=== PATIENT | male | born 2000 | race Caucasian/White ===

== ENCOUNTER 2022-11-07 05:11 | Inpatient (IN) | payer MEDICAID, SELFPAY ==
[2022-11-07] VITALS (13 sets, daily range): BP systolic 112–142; BP diastolic 56–98; PULSE 86–108; RESP 12–24; TEMP 36.7–37.1; O2SAT 94–100; BMI 22.4
--- NOTE | ~2022-11-07 | CT_ITS ---
EXAMINATION: CT ABDOMEN AND PELVIS WITHOUT CONTRAST CLINICAL INFORMATION: Epigastric pain. Emesis. COMPARISON: None TECHNIQUE: Multidetector volumetric imaging was performed from the superior aspect of the liver through the pubic symphysis. Sagittal and coronal reformatted images were obtained on the technologist's workstation. This CT examination was performed using dose optimization techniques as appropriate, variously including the following: *Automated exposure control *Adjustment of mA and/or kV according to patient size (this includes techniques or standardized protocols for targeted exams where dose is matched to indication/reason for exam; i.e. extremities or head) *Use of iterative reconstruction technique DLP: 315 mGy-cm FINDINGS: LUNG BASES: The visualized lung bases are unremarkable. LIVER, GALLBLADDER, AND BILIARY TREE: The liver is normal in size, shape, and attenuation. No focal hepatic lesion or biliary ductal dilatation is present. The gallbladder is unremarkable with no evidence of radiopaque gallstones, gallbladder wall thickening, or obvious pericholecystic inflammatory changes. PANCREAS: Unremarkable. SPLEEN: Unremarkable. ADRENAL GLANDS: Unremarkable. KIDNEYS AND URETERS: The kidneys are normal in size, shape, and attenuation. No hydronephrosis, hydroureter, or calculi seen. No perinephric stranding. BLADDER: Unremarkable. GASTROINTESTINAL TRACT: No acute abnormality. There is no bowel wall thickening /edema. There is no bowel obstruction. There is a moderate to large volume of stool in the colon. The appendix is nonvisualized . There are no inflammatory changes of the mesentery. The small bowel loops are unremarkable. The stomach is normal. There is no hiatal hernia. ABDOMINAL WALL: No significant hernia is appreciated. LYMPH NODES: Normal. VASCULAR: Unremarkable. PELVIC VISCERA: Unremarkable. OSSEOUS STRUCTURES: Unremarkable. CT/CT abdomen pelvis wo IV con IMPRESSION: No significant abnormality. Fleischner guidelines were followed.
--- NOTE | 2022-11-07 05:23 | ECG_ITS ---
Test Reason : abd pain Blood Pressure : / mmHG Vent. Rate : 112 BPM Atrial Rate : 112 BPM P-R Int : 122 ms QRS Dur : 078 ms QT Int : 330 ms P-R-T Axes : 077 086 052 degrees QTc Int : 450 ms Sinus tachycardia Otherwise normal ECG No previous ECGs available Referred By: Radha Renee Electronically Signed By:ABBY DAVIDSON
[2022-11-07] MEDS: ondansetron HCL 4 MG/2 ML VIAL IVPUSH ×2 (05:59→12:04)
--- NOTE | 2022-11-07 06:00 | ED.GENADULT ---
[facility] - General Adult General Chief complaint: General Medical Stated complaint: chills,body aches Time Seen by Provider: 11/07/22 05:23 Source: patient Mode of arrival: EMS History of Present Illness HPI narrative: 22-year-old male, type 1 diabetic, states that he ate some bad food yesterday and began having multiple episodes of nausea and vomiting and has been able to keep anything down and has continued to feel poorly until he called EMS and is brought in. He denies any diarrhea, fevers, chills. Related Data Allergies Allergy/AdvReac Type Severity Reaction Status Date / Time Unable to Assess Allergy Verified 11/07/22 05:23 Review of Systems Review of Systems: Pertinent positives and negatives as stated in [facility] Past Medical History Source: nursing notes reviewed Social History Social History Advance Directives: No Advance Directives Information Provided: Yes Physical Exam ED Vital Signs: Vital Signs - 24 hr 11/07/22 05:25 Temperature 98.7 F Pulse Rate 108 H Respiratory Rate 16 Blood Pressure 136/98 H Pulse Oximetry 100 Oxygen Delivery Method Room Air BMI result Body Mass Index 22.4 VITAL SIGNS: Reviewed. GENERAL: Well developed, well nourished, in moderate distress. HEAD: Normocephalic/atraumatic EYES: PERRLA, EOMI LUNGS: Normal breath sounds, tachypnea with fruity breath. SpO2<100> CARDIOVASCULAR: Regular rate and rhythm without noted murmurs ABDOMEN: Soft, non-tender, non-distended with bowel sounds. MUSCULOSKELETAL: No tenderness, deformities, or effusions noted on gross inspection. EXTREMITIES: No cyanosis, clubbing or edema. SKIN: Inspection of the skin reveals no rashes NEUROLOGIC: Alert and oriented x 3. Strength and sensation to light touch were grossly intact x 4. Medications Administered Generic Name Dose Route Start Last Admin Trade Name Freq PRN Reason Stop Dose Admin Lactated Ringer's 2,000 mls @ 999 mls/hr 11/07/22 05:30 11/07/22 06:03 Lr IV 11/07/22 07:30 999 mls/hr .Q2H1M EDUARDO Administration Discontinued Medications Generic Name Dose Route Start Last Admin Trade Name Freq PRN Reason Stop Dose Admin Ondansetron HCl 4 mg 11/07/22 05:25 11/07/22 05:59 Ondansetron Hcl 4 Mg/2 Ml Vial IVPUSH 11/07/22 05:26 4 mg ONCE ONE Administration Medical Decision Making Medical Decision Making [facility] Narrative: 22-year-old male, type 1 diabetic, became nauseous and vomiting after suspected contaminated food yesterday. IV a fluid resuscitation with antiemetics and on review of all investigations patient is acidotic with presence of acetone and an anion gap. Patient will receive initial 5 units insulin IV push and then insulin drip will be initiated. Leukocytosis likely secondary to stress/reactive response. Differential Diagnosis Please see the discussion above Consult Healthcare Provider [id number]: I discussed the case with the data entry email processor, Dr. Hodges, who accepts admission. Lab Data Please see the discussion above 11/07/22 05:57 11/07/22 05:57 Labs: Lab Results 11/07/22 11/07/22 11/07/22 Range/Units 05:52 05:57 05:57 WBC 11.6 H (4.8-10.8) X10*3/uL RBC 5.29 (4.60-5.80) X10*6/uL Hgb 15.8 (14.0-18.0) g/dl Hct 43.7 (42.0-52.0) % MCV 82.6 (80.0-98.0) fL MCH 29.9 (27.0-33.0) pg MCHC 36.2 H (31.0-36.0) g/dl RDW 11.2 (11.0-16.0) % Plt Count 310 (160-400) X10*3/uL MPV 9.7 (9.4-12.4) fL Immature Gran % (Auto) 0.3 (0.0-0.4) % Neut % (Auto) 81.8 H (45-73) % Lymph % (Auto) 13.9 L (20-40) % [place] % (Auto) 3.5 (2-11) % Eos % (Auto) 0.2 (0-4) % Baso % (Auto) 0.3 (0-2) % Lymph # (Auto) 1.6 (1.2-4.9) X10*3/uL [place] # (Auto) 0.4 (0.1-1.2) X10*3/uL Eos # (Auto) 0.0 (0.0-0.4) X10*3/uL Baso # (Auto) 0.0 (0.0-0.2) X10*3/uL Abs Immat Gran (auto) 0.03 (0.00-0.03) X10*3/uL Absolute Neuts (auto) 9.5 H (2.0-8.3) x10*3/uL Absolute Nucleated RBC 0.000 (0.0-0.012) X10*3/uL Nucleated RBC % (auto) 0.0 (0.0-0.2) /100WBC VBG pH (7.32-7.43) VBG pCO2 mmHg VBG pO2 mmHg VBG HCO3 (22-26) mmol/L VBG O2 Saturation % VBG Base Excess mmol/L Sodium 135 (135-145) mmol/L Potassium 4.3 (3.3-5.1) mmol/L Chloride 97 (96-108) mmol/L Carbon Dioxide 18 L (22-29) mmol/L Anion Gap 24 H (12-20) BUN 16 (9-16) mg/dL Creatinine 0.89 (0.5-1.4) mg/dL Estim Creat Clear Calc 111.8 Estimated GFR > 60 POC Glucose 283 H (60-115) mg/dL Random Glucose 292 H (60-115) mg/dL Calcium 9.5 (8.4-10.2) mg/dL Total Bilirubin 2.1 H (0.0-1.0) mg/dL AST 18 (5-37) U/L ALT 19 (0-40) U/L Alkaline Phosphatase 110 (39-117) U/L Total Protein 6.9 (6.5-8.0) g/dL Albumin 4.4 (3.5-5.0) g/dL Acetone, Qual Small H (Negative) COVID-19 (RODGER) (Negative) COVID-19 Clin Com 11/07/22 11/07/22 Range/Units 05:57 06:00 WBC (4.8-10.8) X10*3/uL RBC (4.60-5.80) X10*6/uL Hgb (14.0-18.0) g/dl Hct (42.0-52.0) % MCV (80.0-98.0) fL MCH (27.0-33.0) pg MCHC (31.0-36.0) g/dl RDW (11.0-16.0) % Plt Count (160-400) X10*3/uL MPV (9.4-12.4) fL Immature Gran % (Auto) (0.0-0.4) % Neut % (Auto) (45-73) % Lymph % (Auto) (20-40) % [place] % (Auto) (2-11) % Eos % (Auto) (0-4) % Baso % (Auto) (0-2) % Lymph # (Auto) (1.2-4.9) X10*3/uL [place] # (Auto) (0.1-1.2) X10*3/uL Eos # (Auto) (0.0-0.4) X10*3/uL Baso # (Auto) (0.0-0.2) X10*3/uL Abs Immat Gran (auto) (0.00-0.03) X10*3/uL Absolute Neuts (auto) (2.0-8.3) x10*3/uL Absolute Nucleated RBC (0.0-0.012) X10*3/uL Nucleated RBC % (auto) (0.0-0.2) /100WBC VBG pH 7.56 H (7.32-7.43) VBG pCO2 20 mmHg VBG pO2 42 mmHg VBG HCO3 18 L (22-26) mmol/L VBG O2 Saturation 75.0 % VBG Base Excess -0.8 mmol/L Sodium (135-145) mmol/L Potassium (3.3-5.1) mmol/L Chloride (96-108) mmol/L Carbon Dioxide (22-29) mmol/L Anion Gap (12-20) BUN (9-16) mg/dL Creatinine (0.5-1.4) mg/dL Estim Creat Clear Calc Estimated GFR POC Glucose (60-115) mg/dL Random Glucose (60-115) mg/dL Calcium (8.4-10.2) mg/dL Total Bilirubin (0.0-1.0) mg/dL AST (5-37) U/L ALT (0-40) U/L Alkaline Phosphatase (39-117) U/L Total Protein (6.5-8.0) g/dL Albumin (3.5-5.0) g/dL Acetone, Qual (Negative) COVID-19 (RODGER) Negative (Negative) COVID-19 Clin Com See Note Independent Interpretation I performed an independent interpretation of an: EKG Interpretation: Sinus tachycardia, HR-112, no STEMI, MS/QRS/QTC is within normal limits. Chronic Conditions Patient?s care impacted by: Diabetes Critical Care Time Critical Care Time Critical Care Time: Yes Total Critical Care Time: 60 Attestation: I personally attest to this time spent taking care of the patient. Discharge Plan Discharge Clinical Impression: Food poisoning, DKA, type 1 Patient Disposition: Admitted As Inpatient
[2022-11-07 06:02] LABS: MANUAL DIFF FLAG NO
[2022-11-07] MEDS: Lactated Ringers 2,000 ML 999 ML IV (06:03)
[2022-11-07 06:06] LABS: Venous Blood Gas Refer to POC result
[2022-11-07 06:07] LABS: VBG Base Excess -0.8 mmol/L; VBG HCO3 18 mmol/L (22-26); VBG pCO2 20 mmHg; VBG pH 7.56 (7.32-7.43); VBG pO2 42 mmHg
[2022-11-07 06:09] LABS: Basophils Percent Auto 0.3 % (0-2); Eosinophils Percent Auto 0.2 % (0-4); Hematocrit 43.7 % (42.0-52.0); Hemoglobin 15.8 g/dl (14.0-18.0); Imm Gran Abs Auto 0.03 X10*3/uL (0.00-0.03); Imm Gran Pct Auto 0.3 % (0.0-0.4); Lymphocytes Absolute Auto 1.6 X10*3/uL (1.2-4.9); Lymphocytes Percent Auto 13.9 % (20-40); Mean Corpuscular HGB Conc 36.2 g/dl (31.0-36.0); Mean Corpuscular Hemoglobin 29.9 pg (27.0-33.0); Mean Corpuscular Volume 82.6 fL (80.0-98.0); Mean Platelet Volume 9.7 fL (9.4-12.4); Monocytes Absolute Auto 0.4 X10*3/uL (0.1-1.2); Monocytes Percent Auto 3.5 % (2-11); Neutrophils Absolute Auto 9.5 x10*3/uL (2.0-8.3); Neutrophils Percent Auto 81.8 % (45-73); Platelet Count 310 X10*3/uL (160-400); Red Blood Count 5.29 X10*6/uL (4.60-5.80); Red Cell Distribution Width 11.2 % (11.0-16.0); White Blood Count 11.6 X10*3/uL (4.8-10.8)
[2022-11-07 06:16] LABS: Acetone, serum QL Small (Negative)
[2022-11-07 06:17] LABS: COVID-19 Test Negative (Negative); IDNOW Serial# 6674DD1D
[2022-11-07 06:18] LABS: Glucose, Whole Blood 283 mg/dL (60-115)
[2022-11-07 06:26] LABS: Alanine Aminotransferase 19 U/L (0-40); Albumin Level 4.4 g/dL (3.5-5.0); Alkaline Phosphatase 110 U/L (39-117); Anion Gap 24 (12-20); Aspartate Amino Transferase 18 U/L (5-37); Bilirubin Total 2.1 mg/dL (0.0-1.0); Blood Urea Nitrogen 16 mg/dL (9-16); Calcium 9.5 mg/dL (8.4-10.2); Carbon Dioxide 18 mmol/L (22-29); Chloride 97 mmol/L (96-108); Creatinine Clr Calc Pharmacy 111.8; Estimated Glomerular Filt Rate > 60; Glucose Random 292 mg/dL (60-115); Potassium 4.3 mmol/L (3.3-5.1); Sodium 135 mmol/L (135-145); Total Protein 6.9 g/dL (6.5-8.0)
[2022-11-07 06:57] LABS: Glucose, Whole Blood 240 mg/dL (60-115)
[2022-11-07] MEDS: Insulin Regular/NS 100 UNIT/100 ML PLAST..BAG IVCONT ×2 (07:00→09:17)
--- NOTE | 2022-11-07 07:09 | PC.NURSE ---
late entry-pt biba iv 20 ac placed in right and left ac. pt medicated according to mar. bloodwork obtained and sent down to lab. pt placed on desktop engineer. ekg obtained. dr borges at bedside
--- NOTE | 2022-11-07 07:13 | PC.NURSE ---
prior to insulin administration according to [facility] protocol this rn rechecked POC. POC 240, dr borges made aware of this. according to protocol start pt on insulin gtt @ 1U/hr do not give insulin bolus. discussed this protocol with dr borges. agreeable to plan. per dr borges insulin bolus to be cancelled. this rn and oncoming shift rn at bedside for med administration according to [facility]
[2022-11-07] MEDS: KCl 20 mEq in 0.9 % Sodium ChL 20 MEQ/1,000 ML IV.SOLN 150 MEQ IVCONT (08:02)
[2022-11-07 08:08] LABS: Glucose, Whole Blood 287 mg/dL (60-115)
--- NOTE | 2022-11-07 08:12 | PC.NURSE ---
assumed care of patient at 0700. insulin drip started @ 1unit/hour. 0800 poc 287, Dr durand at bedside. per Dr durand, continue drip at 1unit/hour. new order for IV fluids hung for patient. patient waiting for admission to ICU. will recheck POC @ 0900.
--- NOTE | 2022-11-07 08:12 | PHA.MEDREC ---
Pharmacy Consult ? Medication Reconciliation Pharmacy has completed the medication reconciliation.
[2022-11-07 08:35] LABS: Acetaminophen LAB < 17 mcg/mL (<30); Ethanol < 10 mg/dL; Salicylate < 5.0 mg/dL (15-30)
[2022-11-07 09:03] LABS: Glucose, Whole Blood 319 mg/dL (60-115)
--- NOTE | 2022-11-07 09:13 | PC.NURSE ---
updated furnace fitter of POC 391. per md, increase rate to 2 units/hour. md changed insulin order for new protocol. at next POC check, adjust insulin drip according to protocol
[2022-11-07] MEDS: Bismuth Subsalicylate Liquid 524 MG/30 ML ORAL.SUSP 262 MG PO (09:29)
[2022-11-07 10:05] LABS: Glucose, Whole Blood 254 mg/dL (60-115)
[2022-11-07 11:21] LABS: Venous Blood Gas Refer to POC result
[2022-11-07 11:22] LABS: VBG Base Excess -5.1 mmol/L; VBG HCO3 15 mmol/L (22-26); VBG pCO2 19 mmHg; VBG pH 7.49 (7.32-7.43); VBG pO2 91 mmHg
[2022-11-07] MEDS: Dextrose 5 % and 0.45 % NaCl 1,000 ML 150 ML IVCONT (11:22)
[2022-11-07 11:26] LABS: Glucose, Whole Blood 195 mg/dL (60-115)
[2022-11-07 11:35] LABS: Anion Gap 19 (12-20); Blood Urea Nitrogen 15 mg/dL (9-16); Calcium 8.7 mg/dL (8.4-10.2); Carbon Dioxide 18 mmol/L (22-29); Chloride 105 mmol/L (96-108); Creatinine Clr Calc Pharmacy 134.4; Estimated Glomerular Filt Rate > 60; Glucose Random 232 mg/dL (60-115); Lipase 5 U/L (8-78); Potassium 4.3 mmol/L (3.3-5.1); Sodium 138 mmol/L (135-145)
--- NOTE | 2022-11-07 11:55 | PM.CCHP ---
History of Present Illness Date of Service: 11/07/22 Attending physician on admission: Brittney Hodges Chief Complaint: intractable nausea/vomiting with DKA a 22-year-old who comes in with intractable nausea vomiting unable to hold anything down is the 2nd time and in the last several weeks and he claims it has an intolerance to the food he is eating at his school but he does know of anybody with the same level of reaction that he has had and he had no fever no shaking chills but he has a type 1 diabetic and has not taken his insulin because of poor p.o. intake and he comes in with a positive anion gap metabolic acidosis and some modest urine at a serum acetone and because of his hyperemesis it looks like he has got a a balance and in terms of his negative base excess between the metabolic alkalosis produced by emesis and the metabolic acidosis produced by the the castillo ketonemia and in addition of course or a respiratory alkalosis the intractable emesis just persisted all day long despite being on an IV insulin drip then as well as volume replacement and he had a negative toxicology screen and ultimately because on exam even though the belly felt soft he guarded in the mid epigastrium and I had concerns that it could be missing gastric outlet obstruction or may be he is developing a Dorita-Villegas issue because his emesis was guaiac-positive not grossly so but nonetheless a consideration so dry CT scan of his abdomen was completely benign no issues whatsoever and finally after Compazine and Ativan he went to sleep the emesis seems to have abated and he is slowly repairing his serum bicarb UB no longer has an anion gap and it looks like he has got the a little bit of a non anion gap metabolic acidosis but the degree of hyper been E is diminishing his pCO2 has climbed from 19-23 and were hoping were finally moving in the right direction Review of Systems Review of Systems: Yes all other systems are reviewed and are negative [facility] Social History Social History Household Members: Family Housing: Apartment Do you presently have visiting nurse or other home services: No Patient Tobacco Use Status: Never used Tobacco Smoked in Last 30 Days: No Use of substances other than those prescribed or required for medical reasons: No Have you been hit, kicked, punched, or otherwise hurt by someone within the past year? If so, by whom?: No Do you feel safe in your current relationship?: No Current Relationship Is there a partner from a previous relationship who is making you feel unsafe now?: No Are you made to feel afraid or neglected: No Advance Directives: No Advance Directives Information Provided: Yes Do you have thoughts of harming others: None Do you have a plan to hurt others: No Plan Recently lost weight without trying: No Poor oral hygiene: No Meds Allergies Allergy/AdvReac Type Severity Reaction Status Date / Time Unable to Assess Allergy Verified 11/07/22 05:23 Active Medications: Current Medications Famotidine (Famotidine/Pf 20 Mg/2 Ml Vial) 20 mg IVPUSH BID EDUARDO Potassium Chloride/Sodium Chloride (Kcl 20 Meq In 0.9 % Sodium Chl) 20 meq in 1,000 mls @ 150 mls/hr IVCONT .Q6H40M EDUARDO Last Infusion: 11/07/22 11:24 Dose: 0 mls/hr Dextrose/Sodium Chloride (D51/2ns) 1,000 mls @ 150 mls/hr IVCONT .Q6H40M EDUARDO Last Admin: 11/07/22 11:22 Dose: 150 mls/hr Insulin Human Regular (Myxredlin) 100 unit in 100 mls @ 0 mls/hr IVCONT .Q0M EDUARDO; Protocol Last Titration: 11/07/22 11:04 Dose: 2 unit/hr, 2 mls/hr Dextrose (D10) 250 mls @ 750 mls/hr IV Q30M PRN PRN Reason: BG < 70 Lactated Ringer's (Lr) 1,000 mls @ 100 mls/hr IVCONT .Q10H EDUARDO Ondansetron HCl (Ondansetron Hcl 4 Mg/2 Ml Vial) 4 mg IVPUSH Q8H PRN PRN Reason: Vomiting Home Medications Medication Instructions Recorded Confirmed Last Taken Type insulin degludec 100 unit/mL (3 0 - 46 unit subcut DAILY 11/07/22 11/07/22 Unknown History mL) subcutaneous pen (Tresiba FlexTouch U-100 insulin) insulin lispro 100 unit/mL 0 - 70 unit subcut DAILY 11/07/22 11/07/22 Unknown History subcutaneous pen Physical Exam Vital Signs: Vital Signs: Last Vital Signs Temp 98.5 F 11/07/22 09:50 Pulse 101 H 11/07/22 10:05 Resp 24 H 11/07/22 10:05 BP 127/84 11/07/22 10:05 Pulse Ox 100 11/07/22 10:05 O2 Del Method 11/07/22 10:05 BMI result Body Mass Index 22.4 awake alert oriented and nonfocal EKG is within normal limits he has got excellent bilateral carotid upstrokes and no neck vein distension no gallops no murmurs lungs clear with no ad ventitious sounds abdomen is soft with no organomegaly benign right upper quadrant and right lower quadrant but tender mid epigastrium but a little bit of guarding skin is intact Results Labs 11/07/22 05:57 11/07/22 11:13 Labs: Laboratory Results - last 24 hr 11/07/22 11/07/22 11/07/22 05:52 05:57 05:57 MCV 82.6 MCH 29.9 MCHC 36.2 H RDW 11.2 Plt Count 310 MPV 9.7 Immature Gran % (Auto) 0.3 Neut % (Auto) 81.8 H Lymph % (Auto) 13.9 L [place] % (Auto) 3.5 Eos % (Auto) 0.2 Baso % (Auto) 0.3 Lymph # (Auto) 1.6 [place] # (Auto) 0.4 Eos # (Auto) 0.0 Baso # (Auto) 0.0 Abs Immat Gran (auto) 0.03 Absolute Neuts (auto) 9.5 H Absolute Nucleated RBC 0.000 Nucleated RBC % (auto) 0.0 VBG pH VBG pCO2 VBG pO2 VBG HCO3 VBG O2 Saturation VBG Base Excess Anion Gap 24 H Estim Creat Clear Calc 111.8 Estimated GFR > 60 POC Glucose 283 H Random Glucose 292 H Calcium 9.5 Total Bilirubin 2.1 H AST 18 ALT 19 Alkaline Phosphatase 110 Total Protein 6.9 Albumin 4.4 Lipase Salicylates < 5.0 L Acetaminophen < 17 Ethyl Alcohol < 10 Acetone, Qual Small H COVID-19 (RODGER) COVID-19 Clin Com 11/07/22 11/07/22 11/07/22 05:57 06:00 06:49 MCV MCH MCHC RDW Plt Count MPV Immature Gran % (Auto) Neut % (Auto) Lymph % (Auto) [place] % (Auto) Eos % (Auto) Baso % (Auto) Lymph # (Auto) [place] # (Auto) Eos # (Auto) Baso # (Auto) Abs Immat Gran (auto) Absolute Neuts (auto) Absolute Nucleated RBC Nucleated RBC % (auto) VBG pH 7.56 H VBG pCO2 20 VBG pO2 42 VBG HCO3 18 L VBG O2 Saturation 75.0 VBG Base Excess -0.8 Anion Gap Estim Creat Clear Calc Estimated GFR POC Glucose 240 H Random Glucose Calcium Total Bilirubin AST ALT Alkaline Phosphatase Total Protein Albumin Lipase Salicylates Acetaminophen Ethyl Alcohol Acetone, Qual COVID-19 (RODGER) Negative COVID-19 Clin Com See Note 11/07/22 11/07/22 11/07/22 08:00 08:59 10:01 MCV MCH MCHC RDW Plt Count MPV Immature Gran % (Auto) Neut % (Auto) Lymph % (Auto) [place] % (Auto) Eos % (Auto) Baso % (Auto) Lymph # (Auto) [place] # (Auto) Eos # (Auto) Baso # (Auto) Abs Immat Gran (auto) Absolute Neuts (auto) Absolute Nucleated RBC Nucleated RBC % (auto) VBG pH VBG pCO2 VBG pO2 VBG HCO3 VBG O2 Saturation VBG Base Excess Anion Gap Estim Creat Clear Calc Estimated GFR POC Glucose 287 H 319 H 254 H Random Glucose Calcium Total Bilirubin AST ALT Alkaline Phosphatase Total Protein Albumin Lipase Salicylates Acetaminophen Ethyl Alcohol Acetone, Qual COVID-19 (RODGER) COVID-19 Co-Work 11/07/22 11/07/22 11/07/22 11:03 11:13 11:16 MCV MCH MCHC RDW Plt Count MPV Immature Gran % (Auto) Neut % (Auto) Lymph % (Auto) [place] % (Auto) Eos % (Auto) Baso % (Auto) Lymph # (Auto) [place] # (Auto) Eos # (Auto) Baso # (Auto) Abs Immat Gran (auto) Absolute Neuts (auto) Absolute Nucleated RBC Nucleated RBC % (auto) VBG pH 7.49 H VBG pCO2 19 VBG pO2 91 VBG HCO3 15 L VBG O2 Saturation 99.0 VBG Base Excess -5.1 Anion Gap 19 Estim Creat Clear Calc 134.4 Estimated GFR > 60 POC Glucose 195 H Random Glucose 232 H Calcium 8.7 D Total Bilirubin AST ALT Alkaline Phosphatase Total Protein Albumin Lipase 5 L Salicylates Acetaminophen Ethyl Alcohol Acetone, Qual COVID-19 (RODGER) COVID-19 Clin Com Assessment and Plan (1) Nausea & vomiting: Status: Acute (2) DKA, type 1: Status: Acute (3) Pain associated with hyperemesis: Status: Acute (4) Alkalosis, metabolic: Status: Acute Plan on going to continue with the Ringer's lactate drip as she slowly as he slid slowly repairs his serum bicarb at this point he just has a non anion gap metabolic acidosis the gap has since closed and were close to transitioning to subcutaneous insulin Time Spent With Patient Time: Total time managing care of this patient today 60____ minutes.
[2022-11-07] MEDS: Famotidine/PF 20 MG/2 ML VIAL IVPUSH ×2 (12:04→21:21)
[2022-11-07 12:13] LABS: Glucose, Whole Blood 203 mg/dL (60-115)
[2022-11-07] MEDS: Lactated Ringers 1,000 ML 100 ML IVCONT ×2 (12:19→21:22)
--- NOTE | 2022-11-07 12:20 | PC.NURSE ---
POC 203. spoke with grocery carrier. leave insulin drip running at 2units/hour.
[2022-11-07 13:45] LABS: Appearance Urine Clear; Color Urine Yellow; Glucose Urine UA >=1000 mg/dL (Negative); Leukocyte Esterase Urine Negative (Negative); Nitrite Urine Negative (Negative); Specific Gravity - Urine >= 1.030 (1.005-1.025); UMIC TRIGGER UA YES; UMIC TRIGGER UACC YES; Urine Blood Negative (Negative); Urine Ketones >=160 mg/dL (Negative); Urine Protein Trace mg/dL (Neg-Trace)
--- NOTE | 2022-11-07 13:46 | ECG_ITS ---
Test Reason : chest pain Blood Pressure : / mmHG Vent. Rate : 109 BPM Atrial Rate : 109 BPM P-R Int : 134 ms QRS Dur : 080 ms QT Int : 344 ms P-R-T Axes : 062 073 044 degrees QTc Int : 463 ms Sinus tachycardia Otherwise normal ECG No previous ECGs available Referred By: Brittney Hodges Electronically Signed By:ABBY DAVIDSON
[2022-11-07 13:50] LABS: Bacteria Urine None Seen (None Seen); Hyaline Casts Urine 0-2 /LPF (0-2); RBC Urine 0-2 /HPF (0-2); Squamous Epithelial Cell Urine 0-2 /HPF (0-2); WBC Urine 0-5 /HPF (0-5)
[2022-11-07 13:54] LABS: Amphetamine Screen Urine Not Detected (Not Detect); Barbiturates, Urine Not Detected (Not Detect); Benzodiazepines Screen Urine Not Detected (Not Detect); Cannabinoid Screen Urine Not Detected (Not Detect); Cocaine Screen Urine Not Detected (Not Detect); Fentanyl, urine Not Detected (Not Detect); Opiate Screen Urine Not Detected (Not Detect); Phencyclidine Screen Urine Not Detected (Not Detect)
[2022-11-07 13:54] LABS: GASOB Int Neg Ctl Valid YES; GASOB Int Pos Ctl Valid YES; Occult Blood Gastric POSITIVE (NEG)
[2022-11-07] MEDS: LORazepam 2 MG/ML VIAL 0.5 MG IVPUSH (14:02)
[2022-11-07 14:03] LABS: Glucose, Whole Blood 199 mg/dL (60-115)
[2022-11-07 14:03] LABS: Glucose, Whole Blood 213 mg/dL (60-115)
[2022-11-07] MEDS: Prochlorperazine Edisylate 10 MG/2 ML VIAL 5 MG IV ×2 (14:03→23:05)
[2022-11-07 15:00] LABS: VBG Base Excess -4.3 mmol/L; VBG HCO3 17 mmol/L (22-26); VBG pCO2 23 mmHg; VBG pH 7.46 (7.32-7.43); VBG pO2 66 mmHg
--- NOTE | 2022-11-07 15:01 | P.CNGI_ITS ---
History of Present Illness Data of Consult Service Date: 11/07/22 Requesting physician: Brittney Hodges Primary Care Provider: Unknown Physician HPI Reason for consult: nausea and vomiting This is a 22-year-old gentleman with medical history of type 1 diabetes who presented to the hospital for abdominal pain, nausea, vomiting and was found to have DKA. Gastroenterology has been consulted for intractable nausea and vomiting. History was obtained from the patient, who states that around 3 weeks ago, he had a similar episode where he needed admission as well. He thinks that episode after eating bad food from outside. After discharge from the hospital he continued to have on and off nausea vomiting. He does note that BG were running above 200. On the day of admission, he was having cereal for breakfast when shortly after developed abdominal cramping nausea and nonbloody nonbilious vomiting. Reports his blood sugar 190 at that time. When he presented to the hospital however, was noted to have profound glycosuria and ketonurea. VBG pH7.49. Initial AG of 24 which has now closed. Abd imaging pending. Review of Systems Review of Systems: Yes all other systems are reviewed and are negative [facility] Social History Social History Household Members: Family Housing: Apartment Do you presently have visiting nurse or other home services: No Patient Tobacco Use Status: Never used Tobacco Smoked in Last 30 Days: No Use of substances other than those prescribed or required for medical reasons: No Have you been hit, kicked, punched, or otherwise hurt by someone within the past year? If so, by whom?: No Do you feel safe in your current relationship?: No Current Relationship Is there a partner from a previous relationship who is making you feel unsafe now?: No Are you made to feel afraid or neglected: No Advance Directives: No Advance Directives Information Provided: Yes Do you have thoughts of harming others: None Do you have a plan to hurt others: No Plan Recently lost weight without trying: No Poor oral hygiene: No Meds Allergies Allergy/AdvReac Type Severity Reaction Status Date / Time Unable to Assess Allergy Verified 11/07/22 05:23 Active Medications: Current Medications Famotidine (Famotidine/Pf 20 Mg/2 Ml Vial) 20 mg IVPUSH BID EDUARDO Last Admin: 11/07/22 12:04 Dose: 20 mg Insulin Human Regular (Myxredlin) 100 unit in 100 mls @ 0 mls/hr IVCONT .Q0M EDUARDO; Protocol Last Titration: 11/07/22 13:25 Dose: 2 unit/hr, 2 mls/hr Lactated Ringer's (Lr) 1,000 mls @ 100 mls/hr IVCONT .Q10H EDUARDO Last Admin: 11/07/22 12:19 Dose: 100 mls/hr Ondansetron HCl (Ondansetron Hcl 4 Mg/2 Ml Vial) 4 mg IVPUSH Q8H PRN PRN Reason: Vomiting Last Admin: 11/07/22 12:04 Dose: 4 mg Prochlorperazine Edisylate (Prochlorperazine Edisylate 10 Mg/2 Ml Vial) 5 mg IV Q4H PRN PRN Reason: Nausea Last Admin: 11/07/22 14:03 Dose: 5 mg Home Medications Medication Instructions Recorded Confirmed Last Taken Type insulin degludec 100 unit/mL (3 0 - 46 unit subcut DAILY 11/07/22 11/07/22 Unknown History mL) subcutaneous pen (Tresiba FlexTouch U-100 insulin) insulin lispro 100 unit/mL 0 - 70 unit subcut DAILY 11/07/22 11/07/22 Unknown History subcutaneous pen Physical Exam Vital Signs: Vital Signs: Last Vital Signs Temp 98.5 F 11/07/22 09:50 Pulse 108 H 11/07/22 14:00 Resp 12 11/07/22 14:00 BP 126/86 11/07/22 14:00 Pulse Ox 94 11/07/22 14:00 O2 Del Method 11/07/22 14:00 BMI result Body Mass Index 22.4 Gen appear: Young male, lethargic HEENT: no icterus, no cervical lymphadenopathy Chest: No overt resp distress CVS: S1/S2, regular Abd: soft, mildly tender, nondistended Psych: Stable affect, answering questions appropriately Neuro: A/Ox3 noted to move all extremities spontaneously Ext: no peripheral edema Results Labs 11/07/22 05:57 11/07/22 11:13 Labs: Short CBC 11/07/22 Range/Units 05:57 WBC 11.6 H (4.8-10.8) X10*3/uL Hgb 15.8 (14.0-18.0) g/dl Hct 43.7 (42.0-52.0) % Plt Count 310 (160-400) X10*3/uL BMP 11/07/22 11/07/22 05:57 11:13 Sodium 135 138 Potassium 4.3 4.3 Chloride 97 105 Carbon Dioxide 18 L 18 L BUN 16 15 Creatinine 0.89 0.74 Calcium 9.5 8.7 D Liver Function 11/07/22 Range/Units 05:57 Total Bilirubin 2.1 H (0.0-1.0) mg/dL AST 18 (5-37) U/L ALT 19 (0-40) U/L Alkaline Phosphatase 110 (39-117) U/L Albumin 4.4 (3.5-5.0) g/dL Urine 11/07/22 Range/Units 13:20 Urine Color Yellow Urine Appearance Clear Urine pH 6.0 (5.0-9.0) Ur Specific [place] >= 1.030 H (1.005-1.025) Urine Protein Trace (Neg-Trace) mg/dL Urine Glucose (UA) >=1000 H (Negative) mg/dL Assessment and Plan (1) Nausea & vomiting: Status: Acute (2) DKA, type 1: Status: Acute Plan Presenting with DKA which is the most likely cause of abd pain, N,V as well due to a combination of delayed gastric emptying, metabolic derangement. Other DDx include GOO, PUD, esophagitis/gastritis. Pancreatitis and hepatobiliary etiology less likely given lipase and LFTs normal. Anticipate this to improve with resolution of DKA (i.e normalisation of BG, AG and bicarb). However, since N,V appeared to have been present even before this admission per patient's report, can consider inpatient EGD. This will be done after resolution of DKA. CT abd/pel pending. Pt tentatively scheduled for EGD tomorrow, and will be re-evaluated tomorrow morning before proceeding. Thank you for allowing me to participate in his care. Please do not hesitate to reach out for any questions or concerns. Time Spent With Patient Time: Total time managing care of this patient today ____ minutes. Procedures Date of Service Date of Service: 11/07/22
[2022-11-07 15:04] LABS: MANUAL DIFF FLAG NO
[2022-11-07 15:07] LABS: Basophils Percent Auto 0.1 % (0-2); Hematocrit 40.3 % (42.0-52.0); Hemoglobin 14.3 g/dl (14.0-18.0); Imm Gran Abs Auto 0.04 X10*3/uL (0.00-0.03); Imm Gran Pct Auto 0.3 % (0.0-0.4); Lymphocytes Absolute Auto 1.3 X10*3/uL (1.2-4.9); Lymphocytes Percent Auto 11.2 % (20-40); Mean Corpuscular HGB Conc 35.5 g/dl (31.0-36.0); Mean Corpuscular Hemoglobin 29.7 pg (27.0-33.0); Mean Corpuscular Volume 83.8 fL (80.0-98.0); Mean Platelet Volume 9.6 fL (9.4-12.4); Monocytes Absolute Auto 0.5 X10*3/uL (0.1-1.2); Neutrophils Absolute Auto 9.8 x10*3/uL (2.0-8.3); Neutrophils Percent Auto 84.4 % (45-73); Platelet Count 282 X10*3/uL (160-400); Red Blood Count 4.81 X10*6/uL (4.60-5.80); Red Cell Distribution Width 11.2 % (11.0-16.0); White Blood Count 11.6 X10*3/uL (4.8-10.8)
[2022-11-07 15:26] LABS: Alanine Aminotransferase 15 U/L (0-40); Alkaline Phosphatase 102 U/L (39-117); Anion Gap 19 (12-20); Aspartate Amino Transferase 13 U/L (5-37); Bilirubin Total 1.3 mg/dL (0.0-1.0); Blood Urea Nitrogen 15 mg/dL (9-16); Carbon Dioxide 18 mmol/L (22-29); Chloride 105 mmol/L (96-108); Creatinine Clr Calc Pharmacy 136.3; Estimated Glomerular Filt Rate > 60; Glucose Random 201 mg/dL (60-115); Sodium 138 mmol/L (135-145)
--- NOTE | 2022-11-07 16:10 | PC.NURSE ---
Addendum entered by Alvarez Gerardo RN 11/07/22 18:43: pt gave permission to update GF Aide and mother. both updated by this RN. Mothers number is Original Note: Per md check POc hourly and inform MD of results. Insulin drip maintained and titrated per MD verbal order. Pt bladder scanned multiple times and encouraged to void d/t pt not voiding for a prolonged period of time and retaining. RN from [facility] [employer] called, informed this RN pt was in ICU at [facility] in [facility] in Oct for same issue. Pt has been c/o difficulty eating foods at the [employer] for months prior to this admission. [facility] contacted and requested medical records to be faxed over to [facility] ICU.
[2022-11-07 16:13] LABS: Glucose, Whole Blood 147 mg/dL (60-115)
[2022-11-07] MEDS: Insulin Glargine,Hum.rec.anlog 100 UNIT/ML 10 ML VIAL 10 UNIT SUBCUT (17:18)
[2022-11-07 17:20] LABS: Glucose, Whole Blood 132 mg/dL (60-115)
[2022-11-07 19:09] LABS: Anion Gap 17 (12-20); Blood Urea Nitrogen 14 mg/dL (9-16); Calcium 9.1 mg/dL (8.4-10.2); Carbon Dioxide 21 mmol/L (22-29); Chloride 106 mmol/L (96-108); Creatinine Clr Calc Pharmacy 140.1; Estimated Glomerular Filt Rate > 60; Glucose Random 168 mg/dL (60-115); Potassium 4.1 mmol/L (3.3-5.1); Sodium 140 mmol/L (135-145)
[2022-11-07 21:18] LABS: Glucose, Whole Blood 241 mg/dL (60-115)
[2022-11-07] MEDS: Insulin Lispro 100 UNIT/ML 3 ML VIAL SUBCUT (21:21)
[2022-11-08] MEDS: ondansetron HCL 4 MG/2 ML VIAL IVPUSH ×2 (02:39→12:20)
[2022-11-08 02:51] LABS: Glucose, Whole Blood 189 mg/dL (60-115)
[2022-11-08 04:00] VITALS: BP 139/86; PULSE 122; RESP 20; TEMP 37.1; O2SAT 100
[2022-11-08] MEDS: Lactated Ringers 1,000 ML 100 ML IVCONT ×2 (05:58→16:49)
[2022-11-08 07:38] VITALS: BP 129/78; PULSE 98; RESP 18; TEMP 37.2; O2SAT 100
[2022-11-08 07:46] LABS: Glucose, Whole Blood 282 mg/dL (60-115)
[2022-11-08] MEDS: Prochlorperazine Edisylate 10 MG/2 ML VIAL 5 MG IV ×3 (08:17→19:42)
[2022-11-08] MEDS: Famotidine/PF 20 MG/2 ML VIAL IVPUSH (08:17)
--- NOTE | 2022-11-08 08:48 | PC.NURSE ---
pt c/o sob and heart racing due to n/v. BP 129/88. HR 117. O2 100% RA. put pt on 2L NC and gave 20 units Glargine per MD Dr Bailey. pt was feeling better after 15 min and O2 removed. aware
[2022-11-08] MEDS: Insulin Glargine,Hum.rec.anlog 100 UNIT/ML 10 ML VIAL 20 UNIT SUBCUT ×2 (09:00→12:43)
--- NOTE | 2022-11-08 09:05 | MHC.CM.PN ---
Male 22 DX DKA He lives with his family. Mother is at bedside. He is independent with all functional mobility. He has been vaccinated for Covid. A HCP has been documented and placed on the chart. DP home family assist and transport. Endocrine Yana Lopez
[2022-11-08 10:01] LABS: Hematocrit 40.5 % (42.0-52.0); Mean Corpuscular HGB Conc 34.6 g/dl (31.0-36.0); Mean Corpuscular Hemoglobin 29.5 pg (27.0-33.0); Mean Corpuscular Volume 85.4 fL (80.0-98.0); Mean Platelet Volume 9.8 fL (9.4-12.4); Platelet Count 258 X10*3/uL (160-400); Red Blood Count 4.74 X10*6/uL (4.60-5.80); Red Cell Distribution Width 11.1 % (11.0-16.0); White Blood Count 11.1 X10*3/uL (4.8-10.8)
[2022-11-08 10:17] LABS: Blood Urea Nitrogen 12 mg/dL (9-16); Calcium 8.8 mg/dL (8.4-10.2); Creatinine Clr Calc Pharmacy 134.4; Estimated Glomerular Filt Rate > 60; Glucose Random 290 mg/dL (60-115)
[2022-11-08 10:34] LABS: Anion Gap 21 (12-20); Carbon Dioxide 16 mmol/L (22-29); Chloride 102 mmol/L (96-108); Potassium 4.3 mmol/L (3.3-5.1); Sodium 135 mmol/L (135-145)
--- NOTE | 2022-11-08 11:03 | HO.PM.IMPN ---
Subjective Subjective Date of Service: 11/08/22 Interval History: the patient was seen and evaluated this morning Laying in bed, feels comfortable Had an episode of vomiting with chest tightness this morning NPO for EGD today Denies any fever, chills or shortness of breath No reported other overnight events. Review of Systems No fever, chills or weakness No chest pain, palpitation No shortness of breath or coughing No abdominal pain, but reported having nausea and vomiting No urinary symptoms No reported rash Physical Exam Vital Signs: Vital Signs: Last Vital Signs Temp 98.9 F 11/08/22 07:38 Pulse 98 11/08/22 07:38 Resp 18 11/08/22 07:38 BP 129/78 11/08/22 07:38 Pulse Ox 100 11/08/22 07:38 O2 Del Method 11/08/22 07:38 BMI result Body Mass Index 22.4 Const: Other: Constitutional : Awake, interactive, not in distress Neck : Normal inspection, Supple Cardiovascular : RRR, no JVP, no lower extremity edema Respiratory : good bilateral air entry, no crackles, wheezes or rhonchi Gastrointestinal: soft, lax, Normal bowel sounds, Non tender Skin : Warm, Dry Neurological : Alert & oriented x3, No focal deficit Objective Data Active Medications Famotidine (Famotidine/Pf 20 Mg/2 Ml Vial) 20 mg IVPUSH BID [facility] Last Admin: 11/08/22 08:17 Dose: 20 mg Documented By: LOU Glucose (Glucose Gel 15 Gm Gel..Gram.) 15 gm PO Q15M PRN; Protocol PRN Reason: per Hypoglycemia Standing Ord. Lactated Ringer's (Lr) 1,000 mls @ 100 mls/hr IVCONT .Q10H [facility] Last Admin: 11/08/22 05:58 Dose: 100 mls/hr Documented By: ELENO Dextrose (D10) 250 mls @ 750 mls/hr IV Q15M PRN; Protocol PRN Reason: per Hypoglycemia Standing Ord. Insulin Glargine (Insulin Glargine,Hum.Rec.Anlog 100 Unit/Ml 10 Ml Vial) 20 unit SUBCUT DAILY [facility] Last Admin: 11/08/22 09:00 Dose: 20 unit Documented By: LOU Comments: MD. Bailey approved Insulin Human Lispro (Insulin Lispro 100 Unit/Ml 3 Ml Vial) 0 unit SUBCUT KRYSTEN [facility]; Protocol Stop: 11/08/22 16:57 Last Admin: 11/08/22 08:18 Dose: Not Given Documented By: LOU Non-Admin Reason: NPO Ondansetron HCl (Ondansetron Hcl 4 Mg/2 Ml Vial) 4 mg IVPUSH Q8H PRN PRN Reason: Vomiting Last Admin: 11/08/22 02:39 Dose: 4 mg Documented By: PORTER Prochlorperazine Edisylate (Prochlorperazine Edisylate 10 Mg/2 Ml Vial) 5 mg IV Q4H PRN PRN Reason: Nausea Last Admin: 11/08/22 08:17 Dose: 5 mg Documented By: LOU Labs 11/08/22 09:24 11/08/22 09:24 Labs: Laboratory Results - last 24 hr 11/07/22 11/07/22 11/07/22 11:03 11:13 11:16 MCV MCH MCHC RDW Plt Count MPV Immature Gran % (Auto) Neut % (Auto) Lymph % (Auto) [place] % (Auto) Eos % (Auto) Baso % (Auto) Lymph # (Auto) [place] # (Auto) Eos # (Auto) Baso # (Auto) Abs Immat Gran (auto) Absolute Neuts (auto) Absolute Nucleated RBC Nucleated RBC % (auto) VBG pH 7.49 H VBG pCO2 19 VBG pO2 91 VBG HCO3 15 L VBG O2 Saturation 99.0 VBG Base Excess -5.1 Anion Gap 19 Estim Creat Clear Calc 134.4 Estimated GFR > 60 POC Glucose 195 H Random Glucose 232 H Lactic Acid Calcium 8.7 D Total Bilirubin AST ALT Alkaline Phosphatase Total Protein Albumin Lipase 5 L Urine Color Urine Appearance Urine pH Ur Specific [place] Urine Protein Urine Glucose (UA) Urine Ketones Urine Blood Urine Nitrite Ur Leukocyte Esterase Urine RBC Urine WBC Ur Squamous Epith Cells Urine Bacteria Hyaline Casts Gastric Occult Blood Urine Opiates Screen Urine Fentanyl Screen Ur Barbiturates Screen Ur Phencyclidine Scrn Ur Amphetamines Screen U Benzodiazepines Scrn Urine Cocaine Screen U Marijuana (THC) Screen 11/07/22 11/07/22 11/07/22 12:01 13:20 13:20 MCV MCH MCHC RDW Plt Count MPV Immature Gran % (Auto) Neut % (Auto) Lymph % (Auto) [place] % (Auto) Eos % (Auto) Baso % (Auto) Lymph # (Auto) [place] # (Auto) Eos # (Auto) Baso # (Auto) Abs Immat Gran (auto) Absolute Neuts (auto) Absolute Nucleated RBC Nucleated RBC % (auto) VBG pH VBG pCO2 VBG pO2 VBG HCO3 VBG O2 Saturation VBG Base Excess Anion Gap Estim Creat Clear Calc Estimated GFR POC Glucose 203 H Random Glucose Lactic Acid Calcium Total Bilirubin AST ALT Alkaline Phosphatase Total Protein Albumin Lipase Urine Color Yellow Urine Appearance Clear Urine pH 6.0 Ur Specific [place] >= 1.030 H Urine Protein Trace Urine Glucose (UA) >=1000 H Urine Ketones >=160 Urine Blood Negative Urine Nitrite Negative Ur Leukocyte Esterase Negative Urine RBC 0-2 Urine WBC 0-5 Ur Squamous Epith Cells 0-2 Urine Bacteria None Seen Hyaline Casts 0-2 Gastric Occult Blood Urine Opiates Screen Not Detected Urine Fentanyl Screen Not Detected Ur Barbiturates Screen Not Detected Ur Phencyclidine Scrn Not Detected Ur Amphetamines Screen Not Detected U Benzodiazepines Scrn Not Detected Urine Cocaine Screen Not Detected U Marijuana (THC) Screen Not Detected 11/07/22 11/07/22 11/07/22 13:25 13:37 13:58 MCV MCH MCHC RDW Plt Count MPV Immature Gran % (Auto) Neut % (Auto) Lymph % (Auto) [place] % (Auto) Eos % (Auto) Baso % (Auto) Lymph # (Auto) [place] # (Auto) Eos # (Auto) Baso # (Auto) Abs Immat Gran (auto) Absolute Neuts (auto) Absolute Nucleated RBC Nucleated RBC % (auto) VBG pH VBG pCO2 VBG pO2 VBG HCO3 VBG O2 Saturation VBG Base Excess Anion Gap Estim Creat Clear Calc Estimated GFR POC Glucose 199 H 213 H Random Glucose Lactic Acid Calcium Total Bilirubin AST ALT Alkaline Phosphatase Total Protein Albumin Lipase Urine Color Urine Appearance Urine pH Ur Specific [place] Urine Protein Urine Glucose (UA) Urine Ketones Urine Blood Urine Nitrite Ur Leukocyte Esterase Urine RBC Urine WBC Ur Squamous Epith Cells Urine Bacteria Hyaline Casts Gastric Occult Blood POSITIVE Urine Opiates Screen Urine Fentanyl Screen Ur Barbiturates Screen Ur Phencyclidine Scrn Ur Amphetamines Screen U Benzodiazepines Scrn Urine Cocaine Screen U Marijuana (THC) Screen 11/07/22 11/07/22 11/07/22 14:53 14:56 14:56 MCV 83.8 MCH 29.7 MCHC 35.5 RDW 11.2 Plt Count 282 MPV 9.6 Immature Gran % (Auto) 0.3 Neut % (Auto) 84.4 H Lymph % (Auto) 11.2 L [place] % (Auto) 4.0 Eos % (Auto) 0.0 Baso % (Auto) 0.1 Lymph # (Auto) 1.3 [place] # (Auto) 0.5 Eos # (Auto) 0.0 Baso # (Auto) 0.0 Abs Immat Gran (auto) 0.04 H Absolute Neuts (auto) 9.8 H Absolute Nucleated RBC 0.000 Nucleated RBC % (auto) 0.0 VBG pH 7.46 H VBG pCO2 23 VBG pO2 66 VBG HCO3 17 L VBG O2 Saturation 91.0 VBG Base Excess -4.3 Anion Gap 19 Estim Creat Clear Calc 136.3 Estimated GFR > 60 POC Glucose Random Glucose 201 H Lactic Acid Calcium 9.0 Total Bilirubin 1.3 H AST 13 ALT 15 Alkaline Phosphatase 102 Total Protein 6.0 L Albumin 4.0 Lipase Urine Color Urine Appearance Urine pH Ur Specific [place] Urine Protein Urine Glucose (UA) Urine Ketones Urine Blood Urine Nitrite Ur Leukocyte Esterase Urine RBC Urine WBC Ur Squamous Epith Cells Urine Bacteria Hyaline Casts Gastric Occult Blood Urine Opiates Screen Urine Fentanyl Screen Ur Barbiturates Screen Ur Phencyclidine Scrn Ur Amphetamines Screen U Benzodiazepines Scrn Urine Cocaine Screen U Marijuana (THC) Screen 11/07/22 11/07/22 11/07/22 14:56 16:07 17:16 MCV MCH MCHC RDW Plt Count MPV Immature Gran % (Auto) Neut % (Auto) Lymph % (Auto) [place] % (Auto) Eos % (Auto) Baso % (Auto) Lymph # (Auto) [place] # (Auto) Eos # (Auto) Baso # (Auto) Abs Immat Gran (auto) Absolute Neuts (auto) Absolute Nucleated RBC Nucleated RBC % (auto) VBG pH VBG pCO2 VBG pO2 VBG HCO3 VBG O2 Saturation VBG Base Excess Anion Gap Estim Creat Clear Calc Estimated GFR POC Glucose 147 H 132 H Random Glucose Lactic Acid 2.0 Calcium Total Bilirubin AST ALT Alkaline Phosphatase Total Protein Albumin Lipase Urine Color Urine Appearance Urine pH Ur Specific [place] Urine Protein Urine Glucose (UA) Urine Ketones Urine Blood Urine Nitrite Ur Leukocyte Esterase Urine RBC Urine WBC Ur Squamous Epith Cells Urine Bacteria Hyaline Casts Gastric Occult Blood Urine Opiates Screen Urine Fentanyl Screen Ur Barbiturates Screen Ur Phencyclidine Scrn Ur Amphetamines Screen U Benzodiazepines Scrn Urine Cocaine Screen U Marijuana (THC) Screen 11/07/22 11/07/22 11/08/22 18:06 21:15 02:47 MCV MCH MCHC RDW Plt Count MPV Immature Gran % (Auto) Neut % (Auto) Lymph % (Auto) [place] % (Auto) Eos % (Auto) Baso % (Auto) Lymph # (Auto) [place] # (Auto) Eos # (Auto) Baso # (Auto) Abs Immat Gran (auto) Absolute Neuts (auto) Absolute Nucleated RBC Nucleated RBC % (auto) VBG pH VBG pCO2 VBG pO2 VBG HCO3 VBG O2 Saturation VBG Base Excess Anion Gap 17 Estim Creat Clear Calc 140.1 Estimated GFR > 60 POC Glucose 241 H 189 H Random Glucose 168 H Lactic Acid Calcium 9.1 Total Bilirubin AST ALT Alkaline Phosphatase Total Protein Albumin Lipase Urine Color Urine Appearance Urine pH Ur Specific [place] Urine Protein Urine Glucose (UA) Urine Ketones Urine Blood Urine Nitrite Ur Leukocyte Esterase Urine RBC Urine WBC Ur Squamous Epith Cells Urine Bacteria Hyaline Casts Gastric Occult Blood Urine Opiates Screen Urine Fentanyl Screen Ur Barbiturates Screen Ur Phencyclidine Scrn Ur Amphetamines Screen U Benzodiazepines Scrn Urine Cocaine Screen U Marijuana (THC) Screen 11/08/22 11/08/22 11/08/22 07:40 09:24 09:24 MCV 85.4 MCH 29.5 MCHC 34.6 RDW 11.1 Plt Count 258 MPV 9.8 Immature Gran % (Auto) Neut % (Auto) Lymph % (Auto) [place] % (Auto) Eos % (Auto) Baso % (Auto) Lymph # (Auto) [place] # (Auto) Eos # (Auto) Baso # (Auto) Abs Immat Gran (auto) Absolute Neuts (auto) Absolute Nucleated RBC 0.000 Nucleated RBC % (auto) 0.0 VBG pH VBG pCO2 VBG pO2 VBG HCO3 VBG O2 Saturation VBG Base Excess Anion Gap 21 H Estim Creat Clear Calc 134.4 Estimated GFR > 60 POC Glucose 282 H Random Glucose 290 H Lactic Acid Calcium 8.8 Total Bilirubin AST ALT Alkaline Phosphatase Total Protein Albumin Lipase Urine Color Urine Appearance Urine pH Ur Specific [place] Urine Protein Urine Glucose (UA) Urine Ketones Urine Blood Urine Nitrite Ur Leukocyte Esterase Urine RBC Urine WBC Ur Squamous Epith Cells Urine Bacteria Hyaline Casts Gastric Occult Blood Urine Opiates Screen Urine Fentanyl Screen Ur Barbiturates Screen Ur Phencyclidine Scrn Ur Amphetamines Screen U Benzodiazepines Scrn Urine Cocaine Screen U Marijuana (THC) Screen Assessment and Plan (1) DKA, type 1: Status: Acute (2) Alkalosis, metabolic: Status: Acute (3) Pain associated with hyperemesis: Status: Acute (4) Hematemesis: Status: Acute Plan A 22 years old male with PMH of type 1 diabetes on insulin presents with DKA and hyperemesis with associated hematemesis. Diabetic ketoacidosis, resolved Type 1 diabetes on insulin Start long-acting insulin SSI To start diabetic diet To discontinue fluid by the end of the day Hematemesis Could be associated to hyperemesis and Dorita-Villegas tear Patient might need further workup as outpatient for gastroparesis Pending endoscopy this afternoon DVT PPX Early ambulation The patient will need overnight hospital stay pending evaluation for hematemesis and tolerance of oral diet Time Spent With Patient Time: Total time managing care of this patient today ____ minutes. Quality Stroke Does the patient have a stroke diagnosis?: No VTE Prior VTE?: No VTE Risk Level:: Medical - low VTE Device Contraindication: N/A - Device Ordered VTE Drug Contraindication: Treatment Not Indicated
[2022-11-08 11:44] LABS: Glucose, Whole Blood 264 mg/dL (60-115)
[2022-11-08 12:06] LABS: Estimated Average Glucose 209 mg/dL; Hemoglobin A1c % 8.9 %
[2022-11-08] MEDS: 0.9 % Sodium Chloride 1,000 ML 999 ML IV (12:37)
[2022-11-08] MEDS: Pantoprazole Sodium 40 MG/10 ML VIAL IVPUSH ×2 (12:40→16:48)
[2022-11-08] MEDS: Insulin Lispro 100 UNIT/ML 3 ML VIAL SUBCUT (12:42)
[2022-11-08] MEDS: Metoclopramide HCl 5 MG TABLET PO (12:43)
[2022-11-08 12:50] LABS: Venous Blood Gas Refer to POC result
[2022-11-08 12:53] LABS: VBG Base Excess -7.4 mmol/L; VBG HCO3 15 mmol/L (22-26); VBG pCO2 25 mmHg; VBG pH 7.39 (7.32-7.43); VBG pO2 111 mmHg
--- NOTE | 2022-11-08 15:01 | PM.GIPN ---
Subjective Subjective Date of Service: 11/08/22 Critical Care Time (minutes): 0 Comment: patient seen and evaluated bedside. Appeared comfortable. At this point, not reporting any abdominal pain, nausea vomiting. Physical Exam Vital Signs: Vital Signs: Last Vital Signs Temp 98.9 F 11/08/22 07:38 Pulse 98 11/08/22 07:38 Resp 18 11/08/22 07:38 BP 129/78 11/08/22 07:38 Pulse Ox 100 11/08/22 07:38 O2 Del Method 11/08/22 07:38 BMI result Body Mass Index 22.4 General appearance: No acute distress. Nontoxic appearing Abdomen: Soft, nontender, nondistended Objective Data Labs 11/08/22 09:24 11/08/22 09:24 Labs: Laboratory Results - last 24 hr 11/07/22 11/07/22 11/07/22 14:56 14:56 14:56 WBC 11.6 H RBC 4.81 Hgb 14.3 Hct 40.3 L MCV 83.8 MCH 29.7 MCHC 35.5 RDW 11.2 Plt Count 282 MPV 9.6 Immature Gran % (Auto) 0.3 Neut % (Auto) 84.4 H Lymph % (Auto) 11.2 L [place] % (Auto) 4.0 Eos % (Auto) 0.0 Baso % (Auto) 0.1 Lymph # (Auto) 1.3 [place] # (Auto) 0.5 Eos # (Auto) 0.0 Baso # (Auto) 0.0 Abs Immat Gran (auto) 0.04 H Absolute Neuts (auto) 9.8 H Absolute Nucleated RBC 0.000 Nucleated RBC % (auto) 0.0 VBG pH VBG pCO2 VBG pO2 VBG HCO3 VBG O2 Saturation VBG Base Excess Sodium 138 Potassium 4.0 Chloride 105 Carbon Dioxide 18 L Anion Gap 19 BUN 15 Creatinine 0.73 Estim Creat Clear Calc 136.3 Estimated GFR > 60 POC Glucose Random Glucose 201 H Estimat Average Glucose Hemoglobin A1c % Lactic Acid 2.0 Calcium 9.0 Total Bilirubin 1.3 H AST 13 ALT 15 Alkaline Phosphatase 102 Total Protein 6.0 L Albumin 4.0 11/07/22 11/07/22 11/07/22 16:07 17:16 18:06 WBC RBC Hgb Hct MCV MCH MCHC RDW Plt Count MPV Immature Gran % (Auto) Neut % (Auto) Lymph % (Auto) [place] % (Auto) Eos % (Auto) Baso % (Auto) Lymph # (Auto) [place] # (Auto) Eos # (Auto) Baso # (Auto) Abs Immat Gran (auto) Absolute Neuts (auto) Absolute Nucleated RBC Nucleated RBC % (auto) VBG pH VBG pCO2 VBG pO2 VBG HCO3 VBG O2 Saturation VBG Base Excess Sodium 140 Potassium 4.1 Chloride 106 Carbon Dioxide 21 L Anion Gap 17 BUN 14 Creatinine 0.71 Estim Creat Clear Calc 140.1 Estimated GFR > 60 POC Glucose 147 H 132 H Random Glucose 168 H Estimat Average Glucose Hemoglobin A1c % Lactic Acid Calcium 9.1 Total Bilirubin AST ALT Alkaline Phosphatase Total Protein Albumin 11/07/22 11/08/22 11/08/22 21:15 02:47 07:40 WBC RBC Hgb Hct MCV MCH MCHC RDW Plt Count MPV Immature Gran % (Auto) Neut % (Auto) Lymph % (Auto) [place] % (Auto) Eos % (Auto) Baso % (Auto) Lymph # (Auto) [place] # (Auto) Eos # (Auto) Baso # (Auto) Abs Immat Gran (auto) Absolute Neuts (auto) Absolute Nucleated RBC Nucleated RBC % (auto) VBG pH VBG pCO2 VBG pO2 VBG HCO3 VBG O2 Saturation VBG Base Excess Sodium Potassium Chloride Carbon Dioxide Anion Gap BUN Creatinine Estim Creat Clear Calc Estimated GFR POC Glucose 241 H 189 H 282 H Random Glucose Estimat Average Glucose Hemoglobin A1c % Lactic Acid Calcium Total Bilirubin AST ALT Alkaline Phosphatase Total Protein Albumin 11/08/22 11/08/22 11/08/22 09:24 09:24 09:24 WBC 11.1 H RBC 4.74 Hgb 14.0 Hct 40.5 L MCV 85.4 MCH 29.5 MCHC 34.6 RDW 11.1 Plt Count 258 MPV 9.8 Immature Gran % (Auto) Neut % (Auto) Lymph % (Auto) [place] % (Auto) Eos % (Auto) Baso % (Auto) Lymph # (Auto) [place] # (Auto) Eos # (Auto) Baso # (Auto) Abs Immat Gran (auto) Absolute Neuts (auto) Absolute Nucleated RBC 0.000 Nucleated RBC % (auto) 0.0 VBG pH VBG pCO2 VBG pO2 VBG HCO3 VBG O2 Saturation VBG Base Excess Sodium 135 Potassium 4.3 Chloride 102 Carbon Dioxide 16 L Anion Gap 21 H BUN 12 Creatinine 0.74 Estim Creat Clear Calc 134.4 Estimated GFR > 60 POC Glucose Random Glucose 290 H Estimat Average Glucose 209 Hemoglobin A1c % 8.9 Lactic Acid Calcium 8.8 Total Bilirubin AST ALT Alkaline Phosphatase Total Protein Albumin 11/08/22 11/08/22 11:16 12:46 WBC RBC Hgb Hct MCV MCH MCHC RDW Plt Count MPV Immature Gran % (Auto) Neut % (Auto) Lymph % (Auto) [place] % (Auto) Eos % (Auto) Baso % (Auto) Lymph # (Auto) [place] # (Auto) Eos # (Auto) Baso # (Auto) Abs Immat Gran (auto) Absolute Neuts (auto) Absolute Nucleated RBC Nucleated RBC % (auto) VBG pH 7.39 VBG pCO2 25 VBG pO2 111 VBG HCO3 15 L VBG O2 Saturation 100.0 VBG Base Excess -7.4 Sodium Potassium Chloride Carbon Dioxide Anion Gap BUN Creatinine Estim Creat Clear Calc Estimated GFR POC Glucose 264 H Random Glucose Estimat Average Glucose Hemoglobin A1c % Lactic Acid Calcium Total Bilirubin AST ALT Alkaline Phosphatase Total Protein Albumin Procedures Date of Service Date of Service: 11/08/22 Progress Note: A&P Assessment and plan (1) Nausea & vomiting: Status: Acute (2) DKA, type 1: Status: Acute Plan Plan was for upper endoscopy to evaluate nausea and vomiting which the patient reported started before his admission for DKA. However, patient noted to have persistently high blood sugars with reopening of anion gap. EGD postponed to tomorrow, contingent on control of blood sugars and resolution of DKA. Time Spent With Patient Time: Total time managing care of this patient today ____ minutes. Quality Stroke Does the patient have a stroke diagnosis?: No VTE Prior VTE?: No VTE Risk Level:: Medical - low VTE Device Contraindication: N/A - Device Ordered VTE Drug Contraindication: Treatment Not Indicated
[2022-11-08 15:18] VITALS: BP 116/65; PULSE 95; RESP 17; TEMP 36.8; O2SAT 99
[2022-11-08 15:53] LABS: Anion Gap 18 (12-20); Blood Urea Nitrogen 9 mg/dL (9-16); Calcium 8.5 mg/dL (8.4-10.2); Carbon Dioxide 16 mmol/L (22-29); Chloride 108 mmol/L (96-108); Creatinine Clr Calc Pharmacy 142.1; Estimated Glomerular Filt Rate > 60; Glucose Random 112 mg/dL (60-115); Potassium 3.9 mmol/L (3.3-5.1); Sodium 138 mmol/L (135-145)
[2022-11-08 15:58] LABS: Glucose, Whole Blood 108 mg/dL (60-115)
[2022-11-08 16:01] LABS: Acetone, serum QL Negative (Negative)
[2022-11-08 19:05] VITALS: BP 118/62; PULSE 93; RESP 17; TEMP 36.8; O2SAT 100
[2022-11-08 19:13] LABS: Glucose, Whole Blood 40 mg/dL (60-115)
[2022-11-08] MEDS: Glucose Gel 15 GM GEL..GRAM. PO (19:14)
--- NOTE | 2022-11-08 19:20 | PC.NURSE ---
Addendum entered by Kayy Cabrera RN 11/08/22 19:53: repeat poc 52. MD Bailey notified. started Dextrose 10% 250 ml bag running at 750ml/hr. repeat poc at 2009 Original Note: pt POC 40. pt is still lethargic but still alert and oriented. MD Dr Bailey notified. pt took 80% of Glucogel, 1 OJ and 1 apple juice. will retake POC ~1932
[2022-11-08] MEDS: Dextrose 10 % 250 ML 750 ML IV (19:47)
[2022-11-08 19:52] LABS: Glucose, Whole Blood 52 mg/dL (60-115)
[2022-11-08 20:14] LABS: Glucose, Whole Blood 214 mg/dL (60-115)
[2022-11-08] MEDS: Dextrose 5 % and Lactated Ring 1,000 ML 50 ML IVCONT (20:33)
[2022-11-08 21:20] LABS: Glucose, Whole Blood 209 mg/dL (60-115)
[2022-11-08 22:32] LABS: Glucose, Whole Blood 198 mg/dL (60-115)
--- NOTE | 2022-11-08 23:51 | PC.NURSE ---
2017: Reported to MD Dr Alex pt POC was 40 glucose gel given pt vomited , went up to 52 , D 10(250ml) administered blood sugar now 214. would like 1hour POC for 2 readings then q 2 hour readings . 2126 : POC 209 reported to . 2237: POC 198 reported to .
[2022-11-09] VITALS (8 sets, daily range): BP systolic 116–136; BP diastolic 69–84; PULSE 85–117; RESP 14–20; TEMP 36.3–37.6; O2SAT 98–100
--- NOTE | 2022-11-09 00:50 | PC.NURSE ---
0050 2 hour POC 158 .
[2022-11-09 00:51] LABS: Glucose, Whole Blood 158 mg/dL (60-115)
[2022-11-09 02:47] LABS: Glucose, Whole Blood 158 mg/dL (60-115)
[2022-11-09] MEDS: Prochlorperazine Edisylate 10 MG/2 ML VIAL 5 MG IV ×3 (03:33→21:25)
[2022-11-09 04:44] LABS: Glucose, Whole Blood 131 mg/dL (60-115)
--- NOTE | 2022-11-09 04:45 | PC.NURSE ---
0430 2hour POC 131
[2022-11-09 06:16] LABS: Glucose, Whole Blood 141 mg/dL (60-115)
[2022-11-09] MEDS: Pantoprazole Sodium 40 MG/10 ML VIAL IVPUSH (06:32)
[2022-11-09 06:45] LABS: Hematocrit 41.6 % (42.0-52.0); Hemoglobin 14.9 g/dl (14.0-18.0); Mean Corpuscular HGB Conc 35.8 g/dl (31.0-36.0); Mean Corpuscular Hemoglobin 30.3 pg (27.0-33.0); Mean Corpuscular Volume 84.6 fL (80.0-98.0); Mean Platelet Volume 9.5 fL (9.4-12.4); Platelet Count 266 X10*3/uL (160-400); Red Blood Count 4.92 X10*6/uL (4.60-5.80); Red Cell Distribution Width 11.1 % (11.0-16.0); White Blood Count 9.1 X10*3/uL (4.8-10.8)
[2022-11-09 07:01] LABS: Anion Gap 15 (12-20); Blood Urea Nitrogen 5 mg/dL (9-16); Carbon Dioxide 27 mmol/L (22-29); Chloride 101 mmol/L (96-108); Creatinine Clr Calc Pharmacy 132.6; Estimated Glomerular Filt Rate > 60; Glucose Random 143 mg/dL (60-115); Potassium 3.5 mmol/L (3.3-5.1); Sodium 139 mmol/L (135-145)
[2022-11-09 07:25] LABS: Glucose, Whole Blood 149 mg/dL (60-115)
--- NOTE | 2022-11-09 10:53 | HO.PM.IMPN ---
Subjective Subjective Date of Service: 11/09/22 Interval History: the patient was seen and evaluated this morning Laying in bed, feels comfortable with significant improvement in nausea and vomiting NPO for EGD today No reported other overnight events. Review of Systems No fever, chills or weakness No chest pain, palpitation No shortness of breath or coughing No abdominal pain, improved nausea and vomiting No urinary symptoms No reported rash Physical Exam Vital Signs: Vital Signs: Last Vital Signs Temp 98.2 F 11/09/22 07:06 Pulse 94 11/09/22 07:06 Resp 16 11/09/22 07:06 BP 127/82 11/09/22 07:06 Pulse Ox 100 11/09/22 07:06 O2 Del Method 11/09/22 07:06 BMI result Body Mass Index 22.4 Const: Other: Constitutional : Awake, interactive, not in distress Neck : Normal inspection, Supple Cardiovascular : RRR, no JVP, no lower extremity edema Respiratory : good bilateral air entry, no crackles, wheezes or rhonchi Gastrointestinal: soft, lax, Normal bowel sounds, Non tender Skin : Warm, Dry Neurological : Alert & oriented x3, No focal deficit Objective Data Active Medications Glucose (Glucose Gel 15 Gm Gel..Gram.) 15 gm PO Q15M PRN; Protocol PRN Reason: per Hypoglycemia Standing Ord. Last Admin: 11/08/22 19:14 Dose: 15 gm Documented By: LOU Lactated Ringer's (Lr) 1,000 mls @ 125 mls/hr IVCONT .Q8H [facility] Last Admin: 11/09/22 09:36 Dose: Not Given Documented By: LOU Non-Admin Reason: Physician Held Med Dextrose (D10) 250 mls @ 750 mls/hr IV Q15M PRN; Protocol PRN Reason: per Hypoglycemia Standing Ord. Last Infusion: 11/08/22 20:13 Dose: 0 mls/hr Documented By: KISHAN Dextrose/Lactated Ringer's (D5lr) 1,000 mls @ 50 mls/hr IVCONT .Q20H [facility] Last Admin: 11/08/22 20:33 Dose: 50 mls/hr Documented By: KISHAN Lactated Ringer's (Lr) 1,000 mls @ 50 mls/hr IVCONT .Q20H [facility] Insulin Glargine (Insulin Glargine,Hum.Rec.Anlog 100 Unit/Ml 10 Ml Vial) 40 unit SUBCUT DAILY [facility] Last Admin: 11/09/22 08:36 Dose: Not Given Documented By: LOU Non-Admin Reason: Physician Held Med Metoclopramide HCl (Metoclopramide Hcl 5 Mg Tablet) 5 mg PO TIDAC [facility] Last Admin: 11/09/22 08:00 Dose: Not Given Documented By: LOU Non-Admin Reason: pt refused due to nausea Ondansetron HCl (Ondansetron Hcl 4 Mg/2 Ml Vial) 4 mg IVPUSH Q8H PRN PRN Reason: Vomiting Last Admin: 11/08/22 12:20 Dose: 4 mg Documented By: LOU Pantoprazole Sodium (Pantoprazole Sodium 40 Mg/10 Ml Vial) 40 mg IVPUSH BID@0630,1630 [facility] Last Admin: 11/09/22 06:32 Dose: 40 mg Documented By: KISHAN Prochlorperazine Edisylate (Prochlorperazine Edisylate 10 Mg/2 Ml Vial) 5 mg IV Q4H PRN PRN Reason: Nausea Last Admin: 11/09/22 09:45 Dose: 5 mg Documented By: LOU Labs 11/09/22 06:21 11/09/22 06:21 Labs: Laboratory Results - last 24 hr 11/08/22 11/08/22 11/08/22 09:24 11:16 12:46 MCV MCH MCHC RDW Plt Count MPV Absolute Nucleated RBC Nucleated RBC % (auto) VBG pH 7.39 VBG pCO2 25 VBG pO2 111 VBG HCO3 15 L VBG O2 Saturation 100.0 VBG Base Excess -7.4 Anion Gap Estim Creat Clear Calc Estimated GFR POC Glucose 264 H Random Glucose Estimat Average Glucose 209 Hemoglobin A1c % 8.9 Calcium Acetone, Qual 11/08/22 11/08/22 11/08/22 15:11 15:11 15:23 MCV MCH MCHC RDW Plt Count MPV Absolute Nucleated RBC Nucleated RBC % (auto) VBG pH VBG pCO2 VBG pO2 VBG HCO3 VBG O2 Saturation VBG Base Excess Anion Gap 18 Estim Creat Clear Calc 142.1 Estimated GFR > 60 POC Glucose 108 Random Glucose 112 Estimat Average Glucose Hemoglobin A1c % Calcium 8.5 Acetone, Qual Negative 11/08/22 11/08/22 11/08/22 19:07 19:36 20:10 MCV MCH MCHC RDW Plt Count MPV Absolute Nucleated RBC Nucleated RBC % (auto) VBG pH VBG pCO2 VBG pO2 VBG HCO3 VBG O2 Saturation VBG Base Excess Anion Gap Estim Creat Clear Calc Estimated GFR POC Glucose 40 L* 52 L* 214 H Random Glucose Estimat Average Glucose Hemoglobin A1c % Calcium Acetone, Qual 11/08/22 11/08/22 11/09/22 21:17 22:28 00:46 MCV MCH MCHC RDW Plt Count MPV Absolute Nucleated RBC Nucleated RBC % (auto) VBG pH VBG pCO2 VBG pO2 VBG HCO3 VBG O2 Saturation VBG Base Excess Anion Gap Estim Creat Clear Calc Estimated GFR POC Glucose 209 H 198 H 158 H Random Glucose Estimat Average Glucose Hemoglobin A1c % Calcium Acetone, Qual 11/09/22 11/09/22 11/09/22 02:39 04:41 06:13 MCV MCH MCHC RDW Plt Count MPV Absolute Nucleated RBC Nucleated RBC % (auto) VBG pH VBG pCO2 VBG pO2 VBG HCO3 VBG O2 Saturation VBG Base Excess Anion Gap Estim Creat Clear Calc Estimated GFR POC Glucose 158 H 131 H 141 H Random Glucose Estimat Average Glucose Hemoglobin A1c % Calcium Acetone, Qual 11/09/22 11/09/22 11/09/22 06:21 06:21 07:10 MCV 84.6 MCH 30.3 MCHC 35.8 RDW 11.1 Plt Count 266 MPV 9.5 Absolute Nucleated RBC 0.000 Nucleated RBC % (auto) 0.0 VBG pH VBG pCO2 VBG pO2 VBG HCO3 VBG O2 Saturation VBG Base Excess Anion Gap 15 Estim Creat Clear Calc 132.6 Estimated GFR > 60 POC Glucose 149 H Random Glucose 143 H Estimat Average Glucose Hemoglobin A1c % Calcium 9.0 Acetone, Qual Assessment and Plan (1) Hematemesis: Status: Acute (2) Alkalosis, metabolic: Status: Acute (3) DKA, type 1: Status: Acute (4) Diabetes mellitus: Status: Acute Plan A 22 years old male with PMH of type 1 diabetes on insulin presents with DKA and hyperemesis with associated hematemesis. Diabetic ketoacidosis, resolved Hyperglycemia in Type 1 diabetes on insulin long-acting insulin Keep on IVF SSI To start liquid diet after procedure Hematemesis Could be associated to hyperemesis and Dorita-Villegas tear Patient might need further workup as outpatient for gastroparesis Pending endoscopy this afternoon DVT PPX Early ambulation The patient will need overnight hospital stay pending evaluation for hematemesis and tolerance of oral diet Time Spent With Patient Time: Total time managing care of this patient today ____ minutes. Quality Stroke Does the patient have a stroke diagnosis?: No VTE Prior VTE?: No VTE Risk Level:: Medical - low VTE Device Contraindication: N/A - Device Ordered VTE Drug Contraindication: Treatment Not Indicated
[2022-11-09 10:59] LABS: Glucose, Whole Blood 169 mg/dL (60-115)
--- NOTE | 2022-11-09 11:24 | MHC.SHP ---
Pre-Procedural Eval Section A Date of Service: 11/09/22 The patient is an INPATIENT: Yes Section B Chief Complaint: DKA/Hyperemesis Allergies: Allergies Allergy/AdvReac Type Severity Reaction Status Date / Time No Known Allergies Allergy Verified 11/09/22 11:20 Plan Diagnosis/Plan: Unchanged I have reviewed the history and physical and performed a pertinent physical examination on my patient. No changes have occurred unless specified. Time Spent With Patient Time: Total time managing care of this patient today ____ minutes.
--- NOTE | 2022-11-09 11:25 | P.OP_ITS ---
Operative Note Operative Note Date of Service: 11/09/22 Narrative: Procedure: Esophagogastroduodenoscopy Endoscopist: Lori Batista MD Indication: Nausea vomiting Anesthesia Provider: Dr Gena Mejia Anesthesia Type: MAC ?? EGD Procedure:?? The procedure, indications, preparation and potential complications were reviewed with the patient, who indicated understanding and gave written informed consent to proceed. A physical exam was performed. The endoscope was introduced through the mouth, and advanced to the second part of duodenum. The mucosa was carefully examined on slow withdrawal of the endoscope. The patient tolerated the procedure well. There were no immediate complications.? ? EGD Findings:? * Esophagus:? Normal mucosa noted in the entire esophagus. The Z line was at 37 cm. Middle and lower esophagus forceps biopsies were obtained to rule out eosinophilic esophagitis. * Stomach:? Normal mucosa was noted in the stomach. Random gastric biopsies were taken to rule out H Pylori infection. * Duodenum:? Normal mucosa was noted in the whole of the examined duodenum. Biopsies were taken from duodenal bulb and second portion of the duodenum to rule out celiac sprue. ? EGD Impressions:? * Normal esophagus (biopsy) * Normal stomach (biopsy) * Normal duodenum (biopsy) ?? Recommendations:?? * Follow biopsy results. Our office will call or send a letter with results within 7-10 days. * If H pylori +, patient will be prescribed eradication therapy followed by test of cure. * Avoid NSAIDs. * Above has been reviewed with the patient.
[2022-11-09] MEDS: ondansetron HCL 4 MG/2 ML VIAL IVPUSH (12:24)
[2022-11-09 13:07] LABS: Glucose, Whole Blood 113 mg/dL (60-115)
--- NOTE | 2022-11-09 13:27 | HO.POSTANES ---
Post Anesthesia Evaluation Post Anesthesia Evaluation Vital Signs: Vital Signs Temp Pulse Resp BP Pulse Ox O2 Del Method 11/09/22 12:06 97.3 F 91 18 123/76 99 Room Air 11/09/22 11:51 97.3 F 87 16 119/79 99 Room Air 11/09/22 11:12 98.3 F 92 20 116/72 99 Room Air 11/09/22 07:06 98.2 F 94 16 127/82 100 Room Air 11/09/22 03:06 99.7 F 90 14 131/76 100 Room Air Anesthesia: Monitored Mental Status: Awake Pain Control: Satisfactory Nausea/Vomiting: None Hydration: Adequate Anesthesia-Related Issues: No Anes. Related Issues
--- NOTE | 2022-11-09 14:35 | PC.NURSE ---
1420: pt c/o difficulty moving his jaw then his tongue. pt finished EGD and came back to floor ~1230. Dr Bailey notified and came up to see pt. Benadryl 50mg/1ml was given and symptoms was resolved right away. aware.
[2022-11-09] MEDS: diphenhydrAMINE HCL 50 MG/ML VIAL IVPUSH (14:39)
--- NOTE | 2022-11-09 14:55 | HO.POSTANES ---
Post Anesthesia Evaluation Post Anesthesia Evaluation Vital Signs: Vital Signs Temp Pulse Resp BP Pulse Ox O2 Del Method 11/09/22 12:06 97.3 F 91 18 123/76 99 Room Air 11/09/22 11:51 97.3 F 87 16 119/79 99 Room Air 11/09/22 11:12 98.3 F 92 20 116/72 99 Room Air 11/09/22 07:06 98.2 F 94 16 127/82 100 Room Air 11/09/22 03:06 99.7 F 90 14 131/76 100 Room Air Comments: 3 hours after EGD was done the hospitalist asked me whether pt.'s symptoms are related to anesthesia: Pt. c/o a unstoppable thong movements, he had difficulties with mouth opening. Propofol does not cause these problems.I visited pt.. by that time he had no problems any longer after he got Benadryl. The hospitalist thinks that these symptoms were from Reglan he took in the morning. preprocedure pt.'s arms, elbows were stiff, he was holding his shoulders up, could not relax them, only when he got Propofol. No problems after procedure finished.
[2022-11-09 15:38] LABS: Glucose, Whole Blood 84 mg/dL (60-115)
[2022-11-09] MEDS: Dextrose 5 % and Lactated Ring 1,000 ML 50 ML IVCONT (17:29)
[2022-11-09 19:50] LABS: Glucose, Whole Blood 158 mg/dL (60-115)
[2022-11-09 21:24] LABS: Glucose, Whole Blood 202 mg/dL (60-115)
[2022-11-09] MEDS: Insulin Lispro 100 UNIT/ML 3 ML VIAL SUBCUT (21:38)
[2022-11-10 03:48] LABS: Glucose, Whole Blood 264 mg/dL (60-115)
[2022-11-10] MEDS: Omeprazole 20 MG CAPSULE.DR PO (05:30)
[2022-11-10] MEDS: Prochlorperazine Edisylate 10 MG/2 ML VIAL 5 MG IV ×2 (06:32→15:45)
[2022-11-10 06:40] LABS: Glucose, Whole Blood 384 mg/dL (60-115)
[2022-11-10] MEDS: Insulin Lispro 100 UNIT/ML 3 ML VIAL SUBCUT ×2 (06:40→09:34)
--- NOTE | 2022-11-10 06:45 | PC.NURSE ---
9173 pt asked me to check his BS he was feeling Nausea POC 384 10 units given per protocol tiger text
[2022-11-10 07:24] VITALS: BP 135/86; PULSE 93; RESP 18; TEMP 37.2; O2SAT 99
[2022-11-10 07:49] LABS: Anion Gap 17 (12-20); Blood Urea Nitrogen 7 mg/dL (9-16); Calcium 8.9 mg/dL (8.4-10.2); Carbon Dioxide 24 mmol/L (22-29); Chloride 100 mmol/L (96-108); Creatinine Clr Calc Pharmacy 119.8; Estimated Glomerular Filt Rate > 60; Glucose Random 379 mg/dL (60-115); Potassium 3.7 mmol/L (3.3-5.1); Sodium 137 mmol/L (135-145)
[2022-11-10 07:50] LABS: Glucose, Whole Blood 310 mg/dL (60-115)
[2022-11-10] MEDS: Insulin Glargine,Hum.rec.anlog 100 UNIT/ML 10 ML VIAL 20 UNIT SUBCUT (08:00)
--- NOTE | 2022-11-10 09:46 | HO.POSTANES ---
Post Anesthesia Evaluation Post Anesthesia Evaluation Vital Signs: Vital Signs Temp Pulse Resp BP Pulse Ox O2 Del Method 11/10/22 07:24 98.9 F 93 18 135/86 99 Room Air 11/09/22 23:40 98.9 F 89 18 120/69 98 Room Air Anesthesia: Monitored Mental Status: Awake Pain Control: Satisfactory Nausea/Vomiting: None Hydration: Adequate Anesthesia-Related Issues: No Anes. Related Issues
[2022-11-10 11:27] LABS: Glucose, Whole Blood 74 mg/dL (60-115)
--- NOTE | 2022-11-10 12:20 | HO.PM.IMPN ---
Subjective Subjective Date of Service: 11/10/22 Interval History: the patient was seen and evaluated this morning Laying in bed, feels better overall but not eating much yet No reported other overnight events. Review of Systems No fever, chills or weakness No chest pain, palpitation No shortness of breath or coughing No abdominal pain, improved nausea and vomiting No urinary symptoms No reported rash Physical Exam Vital Signs: Vital Signs: Last Vital Signs Temp 98.9 F 11/10/22 07:24 Pulse 93 11/10/22 07:24 Resp 18 11/10/22 07:24 BP 135/86 11/10/22 07:24 Pulse Ox 99 11/10/22 07:24 O2 Del Method 11/10/22 07:24 BMI result Body Mass Index 22.4 Const: Other: Constitutional : Awake, interactive, not in distress Neck : Normal inspection, Supple Cardiovascular : RRR, no JVP, no lower extremity edema Respiratory : good bilateral air entry, no crackles, wheezes or rhonchi Gastrointestinal: soft, lax, Normal bowel sounds, Non tender Skin : Warm, Dry Neurological : Alert & oriented x3, No focal deficit Objective Data Active Medications Diphenhydramine HCl (Diphenhydramine Hcl 50 Mg/Ml Vial) 25 mg IVPUSH Q4H PRN PRN Reason: Muscle Spasm, Locked Jaw Glucose (Glucose Gel 15 Gm Gel..Gram.) 15 gm PO Q15M PRN; Protocol PRN Reason: per Hypoglycemia Standing Ord. Last Admin: 11/08/22 19:14 Dose: 15 gm Documented By: LOU Dextrose (D10) 250 mls @ 750 mls/hr IV Q15M PRN; Protocol PRN Reason: per Hypoglycemia Standing Ord. Last Infusion: 11/08/22 20:13 Dose: 0 mls/hr Documented By: KISHAN Insulin Human Lispro (Insulin Lispro 100 Unit/Ml 3 Ml Vial) 0 unit SUBCUT QIDACHS [facility]; Protocol Last Admin: 11/10/22 09:34 Dose: 10 unit Documented By: HERNÁN Omeprazole (Omeprazole 20 Mg Capsule.) 20 mg PO DAILY@0630 EDUARDO Last Admin: 11/10/22 05:30 Dose: 20 mg Documented By: KISHAN Ondansetron HCl (Ondansetron Hcl 4 Mg/2 Ml Vial) 4 mg IVPUSH Q8H PRN PRN Reason: Vomiting Last Admin: 11/09/22 12:24 Dose: 4 mg Documented By: LOU Prochlorperazine Edisylate (Prochlorperazine Edisylate 10 Mg/2 Ml Vial) 5 mg IV Q4H PRN PRN Reason: Nausea Last Admin: 11/10/22 06:32 Dose: 5 mg Documented By: KISHAN Labs 11/09/22 06:21 11/10/22 06:35 Labs: Laboratory Results - last 24 hr 11/09/22 11/09/22 11/09/22 13:04 15:13 19:45 Anion Gap Estim Creat Clear Calc Estimated GFR POC Glucose 113 84 158 H Random Glucose Calcium 11/09/22 11/10/22 11/10/22 21:19 03:44 06:35 Anion Gap 17 Estim Creat Clear Calc 119.8 Estimated GFR > 60 POC Glucose 202 H 264 H Random Glucose 379 H* Calcium 8.9 11/10/22 11/10/22 11/10/22 06:37 07:26 11:13 Anion Gap Estim Creat Clear Calc Estimated GFR POC Glucose 384 H* 310 H 74 Random Glucose Calcium Assessment and Plan (1) Diabetes mellitus: Status: Acute (2) Hematemesis: Status: Acute (3) DKA, type 1: Status: Acute Plan A 22 years old male with PMH of type 1 diabetes on insulin presents with DKA and hyperemesis with associated hematemesis. Diabetic ketoacidosis, resolved Hyperglycemia in Type 1 diabetes on insulin long-acting insulin Zofran for nausea did not tolerate Reglan PO DC IVF SSI advance diet GI following Hematemesis associated to hyperemesis and Dorita-Villegas tear need further workup as outpatient for gastroparesis endoscopy negative for any acute findings continue Omeprazole DVT PPX Early ambulation The patient will need overnight hospital stay pending evaluation for hematemesis and tolerance of oral diet Time Spent With Patient Time: Total time managing care of this patient today ____ minutes. Quality Stroke Does the patient have a stroke diagnosis?: No VTE Prior VTE?: No VTE Risk Level:: Medical - low VTE Device Contraindication: N/A - Device Ordered VTE Drug Contraindication: Treatment Not Indicated
[2022-11-10] MEDS: diphenhydrAMINE HCL 50 MG/ML VIAL 25 MG IVPUSH (14:52)
--- NOTE | 2022-11-10 14:59 | PC.NURSE ---
Pt has some reaction which was not new, happen yesterday too and received Benadryl with good effect. Pt denies chest pain,headache, sob, sore throat. Pt is now rest bed on low position and call brar within a reach. Will continue to be monitored.
[2022-11-10 15:05] VITALS: BP 131/87; PULSE 87; RESP 17; TEMP 37.2; O2SAT 100
[2022-11-10 15:19] LABS: Glucose, Whole Blood 158 mg/dL (60-115)
--- NOTE | 2022-11-10 15:34 | MHC.CM.PN ---
No discharge today per MD rounds. Patient is not tolerating PO. He was scoped yesterday. Diet will be advanced as tolerated. DP home with family assist and transport.
[2022-11-10 16:12] LABS: Glucose, Whole Blood 162 mg/dL (60-115)
[2022-11-10 19:43] VITALS: BP 125/67; PULSE 98; RESP 17; TEMP 37.4; O2SAT 97
[2022-11-10 20:11] LABS: Glucose, Whole Blood 162 mg/dL (60-115)
--- NOTE | 2022-11-10 20:24 | PC.NURSE ---
Assumed care at 16:00, Pt still vomiting up about 100 ccs liquid yellowish emesis. POC 162, claims he had BM this morning with diarrhea.Denies marijuana history, had zofran at 1224 and compazine at 1545, says zofran does nothing and too soon for either or PRN benedryl. MD notified, no other intervention at this time per mD. POC 162, no dinner eaten, MD notified and hold 2 units of insulin ordered on sliding scale. Patient advised to rest bowels conservatively while actively nauseaous and vomiting. No SOB. re-check patient resting in bed.
[2022-11-11 04:00] VITALS: BP 139/84; PULSE 104; RESP 19; TEMP 37; O2SAT 96
[2022-11-11] MEDS: Omeprazole 20 MG CAPSULE.DR PO (05:59)
[2022-11-11 06:06] LABS: Glucose, Whole Blood 250 mg/dL (60-115)
[2022-11-11 07:37] LABS: Anion Gap 17 (12-20); Blood Urea Nitrogen 11 mg/dL (9-16); Calcium 9.1 mg/dL (8.4-10.2); Carbon Dioxide 26 mmol/L (22-29); Chloride 98 mmol/L (96-108); Creatinine Clr Calc Pharmacy 129.2; Estimated Glomerular Filt Rate > 60; Glucose Random 321 mg/dL (60-115); Potassium 3.6 mmol/L (3.3-5.1); Sodium 137 mmol/L (135-145)
[2022-11-11 07:45] VITALS: BP 128/83; PULSE 75; RESP 16; TEMP 36.7; O2SAT 94
[2022-11-11 08:19] LABS: Glucose, Whole Blood 365 mg/dL (60-115)
[2022-11-11] MEDS: Insulin Lispro 100 UNIT/ML 3 ML VIAL SUBCUT (08:21)
[2022-11-11] MEDS: Insulin Glargine,Hum.rec.anlog 100 UNIT/ML 10 ML VIAL 25 UNIT SUBCUT (08:22)
[2022-11-11] MEDS: Prochlorperazine Edisylate 10 MG/2 ML VIAL 5 MG IV (10:28)
[2022-11-11 11:20] LABS: Glucose, Whole Blood 119 mg/dL (60-115)
[2022-11-11] MEDS: diphenhydrAMINE HCL 50 MG/ML VIAL 25 MG IVPUSH (11:29)
--- NOTE | 2022-11-11 13:05 | PM.NEUROCN ---
History of Present Illness Data of Consult Service Date: 11/11/22 Primary Care Provider: Unknown Physician HPI Reason for consult: Lock jaw This is?a 22-year-old man with Type I DM who was admitted with intractable nausea, vomiting, unable to hold anything down. This is the 2nd time and in the last several weeks. He had no fever no shaking chills. He has not taken his insulin because of poor p.o. intake and he was admitted to ICU with a positive anion gap metabolic acidosis because of his hyperemesis. He had endoscopy and was given 2 doses of Reglan. Following that he started to get lockjaw on a few episodes which responded to IV Benadryl. I was asked to have that evaluated him in this regard. At this time he feels okay with no muscle spasms anywhere including his job. Still feels nauseated. Review of Systems Review of Systems: No fever, chills or weakness No chest pain, palpitation No shortness of breath or coughing No abdominal pain, improved nausea and vomiting No urinary symptoms No reported rash Yes all other systems are reviewed and are negative [facility] Social History Social History Household Members: Family Housing: Apartment Do you presently have visiting nurse or other home services: No Patient Tobacco Use Status: Never used Tobacco Smoked in Last 30 Days: No Use of substances other than those prescribed or required for medical reasons: No Currently Displaying Signs/Symptoms of Drug Intoxication Withdrawal: No Have you been hit, kicked, punched, or otherwise hurt by someone within the past year? If so, by whom?: No Do you feel safe in your current relationship?: No Current Relationship Is there a partner from a previous relationship who is making you feel unsafe now?: No Are you made to feel afraid or neglected: No Are you DNR?: No Advance Directives: No Advance Directives Information Provided: Yes Do you have thoughts of harming others: None Do you have a plan to hurt others: No Plan Recently lost weight without trying: No Poor oral hygiene: No service: No Current occupational status: unemployed Meds Allergies Allergy/AdvReac Type Severity Reaction Status Date / Time No Known Allergies Allergy Verified 11/09/22 11:20 Active Medications: Current Medications Diphenhydramine HCl (Diphenhydramine Hcl 50 Mg/Ml Vial) 25 mg IVPUSH Q4H PRN PRN Reason: Muscle Spasm, Locked Jaw Last Admin: 11/11/22 11:29 Dose: 25 mg Diphenhydramine HCl (Diphenhydramine Hcl 25 Mg Capsule) 25 mg PO TID [facility] Glucose (Glucose Gel 15 Gm Gel..Gram.) 15 gm PO Q15M PRN; Protocol PRN Reason: per Hypoglycemia Standing Ord. Last Admin: 11/08/22 19:14 Dose: 15 gm Dextrose (D10) 250 mls @ 750 mls/hr IV Q15M PRN; Protocol PRN Reason: per Hypoglycemia Standing Ord. Last Infusion: 11/08/22 20:13 Dose: Infused Insulin Glargine (Insulin Glargine,Hum.Rec.Anlog 100 Unit/Ml 10 Ml Vial) 25 unit SUBCUT DAILY [facility] Last Admin: 11/11/22 08:22 Dose: 25 unit Insulin Human Lispro (Insulin Lispro 100 Unit/Ml 3 Ml Vial) 0 unit SUBCUT QIDACHS [facility]; Protocol Last Admin: 11/11/22 11:57 Dose: Not Given Omeprazole (Omeprazole 20 Mg Capsule.Dr) 20 mg PO DAILY@0630 [facility] Last Admin: 11/11/22 05:59 Dose: 20 mg Ondansetron HCl (Ondansetron Hcl 4 Mg/2 Ml Vial) 4 mg IVPUSH Q8H PRN PRN Reason: Vomiting Last Admin: 11/09/22 12:24 Dose: 4 mg Prochlorperazine Edisylate (Prochlorperazine Edisylate 10 Mg/2 Ml Vial) 5 mg IV Q4H PRN PRN Reason: Nausea Last Admin: 11/11/22 10:28 Dose: 5 mg Home Medications Medication Instructions Recorded Confirmed Last Taken Type insulin degludec 100 unit/mL (3 0 - 46 unit subcut DAILY 11/07/22 11/07/22 Unknown History mL) subcutaneous pen (Tresiba FlexTouch U-100 insulin) insulin lispro 100 unit/mL 0 - 70 unit subcut DAILY 11/07/22 11/07/22 Unknown History subcutaneous pen Physical Exam Vital Signs: Vital Signs: Last Vital Signs Temp 98.1 F 11/11/22 07:45 Pulse 75 11/11/22 07:45 Resp 16 11/11/22 07:45 BP 128/83 11/11/22 07:45 Pulse Ox 94 11/11/22 07:45 O2 Del Method 11/11/22 07:45 BMI result Body Mass Index 22.4 Const: Other: Constitutional : Awake, interactive, not in distress Neck : Normal inspection, Supple Cardiovascular : RRR, no JVP, no lower extremity edema Respiratory : good bilateral air entry, no crackles, wheezes or rhonchi Gastrointestinal: soft, lax, Normal bowel sounds, Non tender Skin : Warm, Dry Neurological : Alert & oriented x3, No focal deficit Limitations: No language barrier Neuro: Other: Normal nonfocal neurological examination. No evidence of trismus or other dystonic features at this time. Results Labs 11/09/22 06:21 11/11/22 06:31 Labs: BMP 11/11/22 06:31 Sodium 137 Potassium 3.6 Chloride 98 Carbon Dioxide 26 BUN 11 Creatinine 0.77 Calcium 9.1 Assessment and Plan (1) Drug induced acute dystonia: Status: Acute He appears to have had an acute dystoniic reactionn to the Reglan which is not dose-dependent with the episodes of trismus and jaw locking but no other dystonic reaction including a blister tonus it's Septra or myoclonic movements. It seems to be subsiding. I would continue to treat with IV Benadryl 50 mg and 1 mg of benztropine IV if the symptoms should recur. (2) Diabetes mellitus: Status: Acute (3) Hematemesis: Status: Acute (4) DKA, type 1: Status: Acute Plan A 22 years old male with PMH of type 1 diabetes on insulin presents with DKA and hyperemesis with associated hematemesis. Diabetic ketoacidosis, resolved Hyperglycemia in Type 1 diabetes on insulin long-acting insulin Zofran for nausea did not tolerate Reglan PO DC IVF SSI advance diet GI following Hematemesis associated to hyperemesis and Dorita-Villegas tear need further workup as outpatient for gastroparesis endoscopy negative for any acute findings continue Omeprazole DVT PPX Early ambulation The patient will need overnight hospital stay pending evaluation for hematemesis and tolerance of oral diet Time Spent With Patient Time: Total time managing care of this patient today ____ minutes. Procedures Date of Service Date of Service: 11/11/22
--- NOTE | 2022-11-11 14:07 | HO.PM.IMPN ---
Subjective Subjective Date of Service: 11/11/22 Interval History: the patient was seen and evaluated this morning nausea much better tolerating more diet new episode of facial dystonia and locked jaw resolved with Benadryl No reported other overnight events. Review of Systems No fever, chills or weakness No chest pain, palpitation No shortness of breath or coughing No abdominal pain, improved nausea and vomiting No urinary symptoms No reported rash Physical Exam Vital Signs: Vital Signs: Last Vital Signs Temp 98.1 F 11/11/22 07:45 Pulse 75 11/11/22 07:45 Resp 16 11/11/22 07:45 BP 128/83 11/11/22 07:45 Pulse Ox 94 11/11/22 07:45 O2 Del Method 11/11/22 07:45 BMI result Body Mass Index 22.4 Const: Other: Constitutional : Awake, interactive, not in distress Neck : Normal inspection, Supple Cardiovascular : RRR, no JVP, no lower extremity edema Respiratory : good bilateral air entry, no crackles, wheezes or rhonchi Gastrointestinal: soft, lax, Normal bowel sounds, Non tender Skin : Warm, Dry Neurological : Alert & oriented x3, No focal deficit Objective Data Active Medications Diphenhydramine HCl (Diphenhydramine Hcl 50 Mg/Ml Vial) 25 mg IVPUSH Q4H PRN PRN Reason: Muscle Spasm, Locked Jaw Last Admin: 11/11/22 11:29 Dose: 25 mg Documented By: RUBY Diphenhydramine HCl (Diphenhydramine Hcl 25 Mg Capsule) 25 mg PO TID [facility] Glucose (Glucose Gel 15 Gm Gel..Gram.) 15 gm PO Q15M PRN; Protocol PRN Reason: per Hypoglycemia Standing Ord. Last Admin: 11/08/22 19:14 Dose: 15 gm Documented By: LOU Dextrose (D10) 250 mls @ 750 mls/hr IV Q15M PRN; Protocol PRN Reason: per Hypoglycemia Standing Ord. Last Infusion: 11/08/22 20:13 Dose: 0 mls/hr Documented By: KISHAN Insulin Glargine (Insulin Glargine,Hum.Rec.Anlog 100 Unit/Ml 10 Ml Vial) 25 unit SUBCUT DAILY [facility] Last Admin: 11/11/22 08:22 Dose: 25 unit Documented By: RUBY Insulin Human Lispro (Insulin Lispro 100 Unit/Ml 3 Ml Vial) 0 unit SUBCUT QIDACHS [facility]; Protocol Last Admin: 11/11/22 11:57 Dose: Not Given Documented By: RUBY Non-Admin Reason: No Insulin Coverage Omeprazole (Omeprazole 20 Mg Shaggy.) 20 mg PO DAILY@0630 [facility] Last Admin: 11/11/22 05:59 Dose: 20 mg Documented By: BRANDI Ondansetron HCl (Ondansetron Hcl 4 Mg/2 Ml Vial) 4 mg IVPUSH Q8H PRN PRN Reason: Vomiting Last Admin: 11/09/22 12:24 Dose: 4 mg Documented By: LOU Prochlorperazine Edisylate (Prochlorperazine Edisylate 10 Mg/2 Ml Vial) 5 mg IV Q4H PRN PRN Reason: Nausea Last Admin: 11/11/22 10:28 Dose: 5 mg Documented By: RUBY Labs 11/09/22 06:21 11/11/22 06:31 Labs: Laboratory Results - last 24 hr 11/10/22 11/10/22 11/10/22 15:07 16:08 19:46 Anion Gap Estim Creat Clear Calc Estimated GFR POC Glucose 158 H 162 H 162 H Random Glucose Calcium 11/11/22 11/11/22 11/11/22 06:02 06:31 08:15 Anion Gap 17 Estim Creat Clear Calc 129.2 Estimated GFR > 60 POC Glucose 250 H 365 H* Random Glucose 321 H Calcium 9.1 11/11/22 11:16 Anion Gap Estim Creat Clear Calc Estimated GFR POC Glucose 119 H Random Glucose Calcium Assessment and Plan (1) Drug induced acute dystonia: Status: Acute (2) Diabetes mellitus: Status: Acute (3) Hematemesis: Status: Acute Plan A 22 years old male with PMH of type 1 diabetes on insulin presents with DKA and hyperemesis with associated hematemesis. Diabetic ketoacidosis, resolved Hyperglycemia in Type 1 diabetes on insulin Zofran for nausea Increase Lantus to 25 SSI advance diet Plan to get insulin pump as outpatient Locked Jaw 2/2 Reglan s\e Use Benadrl and Benzotropine PRN till completely resolves neurology input appreciated Hematemesis endoscopy negative for any acute findings continue Omeprazole follow w GI as OP DVT PPX Early ambulation The patient will need overnight hospital stay for monitoring of locked jaw and dystonia Time Spent With Patient Time: Total time managing care of this patient today ____ minutes. Quality Stroke Does the patient have a stroke diagnosis?: No VTE Prior VTE?: No VTE Risk Level:: Medical - low VTE Device Contraindication: N/A - Device Ordered VTE Drug Contraindication: Treatment Not Indicated
[2022-11-11 15:27] VITALS: BP 120/71; PULSE 90; RESP 17; TEMP 37.1; O2SAT 97
[2022-11-11 15:58] LABS: Glucose, Whole Blood 94 mg/dL (60-115)
[2022-11-11 20:00] VITALS: BP 123/82; PULSE 110; RESP 18; TEMP 36.6; O2SAT 98
[2022-11-11 20:31] LABS: Glucose, Whole Blood 150 mg/dL (60-115)
--- NOTE | 2022-11-11 21:35 | PM.EVENT ---
Event Note Date of Service: 11/11/22 Event Note: Called to patient's room due to mother being agitated and wanting to leave AMA. Mother upset with son's hospital course, including the food he was given. Despite multiple attempts at assuaging mother, including offering optional courses of treatment and warning her and her son of possible consequences of leaving AMA such as series injury and even , patient and his mother left AMA to seek care elsewhere. Son in agreement with mother's wishes, who is his healthcare proxy. Time Spent With Patient Time: Total time managing care of this patient today ____ minutes.
--- NOTE | 2022-11-12 10:51 | PM.EVENT ---
Event Note Date of Service: 11/12/22 Event Note: Discharge summary Discharge diagnosis: Diabetic ketoacidosis Hematemesis Nausea and vomiting Drug induced acute dystonia Patient decided to leave AMA along with his HCP to seek treatment somewhere else. Time Spent With Patient Time: Total time managing care of this patient today ____ minutes.
--- NOTE | 2023-01-17 15:03 | PM.DS ---
DS: Providers Provider Date of Service: 11/11/22 Date of admission: 11/07/22 11:48 Primary care physician: Unknown Physician Consults: 11/07/22 13:39 Consult to Gastroenterology Routine Consulting Provider: Lori Batista Reason for consultation: intractable nausea/vomiting/epigastric pain Has provider been notified: Yes 11/11/22 12:16 Consult to Neurology Routine Consulting Provider: [facility] Reason for consultation: recurrent locked jaw and spasticity DS: Diagnosis Discharge Diagnosis (1) Drug induced acute dystonia: Status: Acute (2) Diabetes mellitus: Status: Acute (3) Hematemesis: Status: Acute (4) Pain associated with hyperemesis: Status: Acute (5) DKA, type 1: Status: Acute DS: Summary Hospital Course Hospital Course: Admission note HPI ?a 22-year-old who comes in with intractable nausea vomiting unable to hold anything down is the 2nd time and in the last several weeks and he claims it has an intolerance to the food he is eating at his school but he does know of anybody with the same level of reaction that he has had and he had no fever no shaking chills but he has a type 1 diabetic and has not taken his insulin because of poor p.o. intake and he comes in with a positive anion gap metabolic acidosis and some modest urine at a serum acetone and because of his hyperemesis it looks like he has got a a balance and in terms of his negative base excess between the metabolic alkalosis produced by emesis and the metabolic acidosis produced by the the castillo ketonemia and in addition of course or a respiratory alkalosis ?the intractable emesis just persisted all day long despite being on an IV insulin drip then as well as volume replacement and he had a negative toxicology screen and ultimately because on exam even though the belly felt soft he guarded in the mid epigastrium and I had concerns that it could be missing gastric outlet obstruction or may be he is developing a Dorita-Villegas issue because his emesis was guaiac-positive not grossly so but nonetheless a consideration so dry CT scan of his abdomen was completely benign no issues whatsoever and finally after Compazine and Ativan he went to sleep the emesis seems to have abated and he is slowly repairing his serum bicarb UB no longer has an anion gap and it looks like he has got the a little bit of a non anion gap metabolic acidosis but the degree of hyper been E is diminishing his pCO2 has climbed from 19-23 and were hoping were finally moving in the right direction Hospital course A 22 years old male with PMH of type 1 diabetes on insulin presents with DKA and hyperemesis with associated hematemesis. Admitted to ICU were blood sugar improved and acidosis resolved. Diabetic ketoacidosis, resolved. monitored Hyperglycemia in Type 1 diabetes on insulin with good response. with increased Lantus to 25 units and SSI. Plan to get insulin pump as outpatient. 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 advanced diet with fair tolerance but continued to have episodes of nausea and vomiting. treated with antiemitics of Reglan. developed 3 episodes of jaw stiffness and feeling of locked jaw. evaluated by neurologist who recommended to hold any more reglan for drug induced acute dystonia and to use Benadrl and Benzotropine PRN till completely resolve. Patient had Hematemesis reported on admission. had an endoscopy negative for any acute findings. received Omeprazole as he was followed by GI team. on the evening of Patient decided to leave AMA along with his HCP to seek treatment somewhere else. Time Spent with Patient Time attestation: Total time managing care of this patient today ____ minutes. Discharge coordination time: Greater than 30 minutes Quality: Safe Use of Opioids Does Pt have an Active Cancer Diagnosis on the Problem List?: No Quality: Stroke Does the patient have a stroke diagnosis?: No Physical Exam Vital Signs: Vital Signs: Last Vital Signs Temp 97.8 F 11/11/22 20:00 Pulse 110 H 11/11/22 20:00 Resp 18 11/11/22 20:00 BP 123/82 11/11/22 20:00 Pulse Ox 98 11/11/22 20:00 O2 Del Method Room Air 11/11/22 20:00 BMI result Body Mass Index 22.4 Const: Other: AMA DS: Data Data Completed and Pending Completed studies during hospitalization [Text1]: Pending at discharge 11/09/22 11:36 Surgical [PTH] Routine Procedures Excision of Duodenum, Via Natural or Artificial Opening Endoscopic, Diagnostic (11/07/22) Excision of Lower Esophagus, Via Natural or Artificial Opening Endoscopic, Diagnostic (11/07/22) Excision of Middle Esophagus, Via Natural or Artificial Opening Endoscopic, Diagnostic (11/07/22) Excision of Stomach, Pylorus, Via Natural or Artificial Opening Endoscopic, Diagnostic (11/07/22) Discharge Plan Discharge Patient Disposition: Left Against Medical Advice Discharge Diagnosis: DKA Hyperemesis dystonia Referrals: Physician,Unknown J [Primary Care Provider] - 1 Week Discharge Medications: No Action insulin lispro 100 unit/mL insulin pen 0 - 70 unit subcut DAILY insulin degludec [Tresiba FlexTouch U-100] 100 unit/mL (3 mL) insulin pen 0 - 46 unit subcut DAILY Discharge Orders: Discharge Order (Routine); Ordered 01/17/23 Ordered By: Yaakov Bailey Care Plan Goals: . Health Concerns: . Plan of Treatment: . Assessment: . Discharge Date/Time: 11/11/22 20:45
== END 2022-11-11 20:45 | disposition left against medical advice (07) | DRG 420 ==
LOC: HO.ED 07:00 → HO.EDOVER 11:57 → HO.ICU 12:17 → HO.IMC 19:54
PROVIDERS: Hospitalist; Internal Medicine; Student in an Organized Health Care Education/Training Program; Admitting Provider Internal Medicine Cardiovascular Disease; Emergency Provider Emergency Medicine; Visit Provider Student in an Organized Health Care Education/Training Program
PROC: 0DJ08ZZ Inspection of Upper Intestinal Tract, Via Natural or Artificial Opening Endoscopic (ICD-10-PCS; CPT 43235; principal; 2022-11-09 14:40)
DX: E10.10 Type 1 diabetes mellitus with ketoacidosis without coma (principal); K22.6 Gastro-esophageal laceration-hemorrhage syndrome; E87.3 Alkalosis; G24.09 Other drug induced dystonia; Z20.822 Contact with and (suspected) exposure to COVID-19; Z88.8 Allergy status to other drugs, medicaments and biological substances; T45.0X5A Adverse effect of antiallergic and antiemetic drugs, initial encounter
CPT/HCPCS: 36415; 74176; 80048; 80053; 80143; 80179; 80307; 81001; 82009; 82077; 82271; 82803; 82947; 83036; 83605; 83690; 85025; 85027; 87635; 88305; 88342; 93005; 99285; J1200; J2060; J2405